=== PATIENT | male | born 1960 | race Caucasian/White ===

== ENCOUNTER 2022-03-08 09:33 | Inpatient (IN) ==
[2022-03-08] MEDS ORDERED: CEFEPIME 1,000 MG in SODIUM CHLORIDE 0.9% 100 ML IV STA (10:08)
[2022-03-08] MEDS ORDERED: SODIUM CHLORIDE 0.9% 1,000 ML IV STA (10:08)
[2022-03-08 10:36] LABS: Basophils % 0.2 % (0.0-0.8); Hematocrit 29.4 VOL% (42.0-52.0); Hemoglobin 9.7 GM/DL (14.0-18.0); Immature Granulocytes % 0.7 %; Immature Granulocytes Absolute 0.04 #; Lymphocytes # 0.4 10*3/uL (1.4-4.0); Lymphocytes % 6.4 % (21.2-54.2); Mean Corpuscular Volume 92.7 FL (87-102); Mean Platelet Volume 11.4 FL (9.6-12.0); Monocytes # 0.3 10*3/uL (0.11-0.8); Monocytes % 4.2 % (1.7-12.7); Neutrophils % 88.5 % (38.7-73.9); Red Blood Count 3.17 MC/CUMM (3.8-5.5); Red Cell Distribution Width 22.9 % (9.3-17.3)
[2022-03-08 10:40] LABS: Platelet Count 62 T/CUMM (130-400)
[2022-03-08 10:59] LABS: Albumin 1.9 G/DL (3.4-5.0); Bilirubin,Total 1.5 MG/DL (0.20-1.00); Calcium 8.6 MG/DL (8.5-10.1); Osmolality,Calculated 265.7 MOS/KG (273-304); Potassium 3.9 MMOL/L (3.5-5.1); Total Protein 6.1 G/DL (6.4-8.2)
[2022-03-08] MEDS ORDERED: SODIUM CHLORIDE 0.9% 2,300 ML IV ONE (11:09)
[2022-03-08 11:23] LABS: Band Neutrophils 7 % (0-10); Lymphocytes 2 % (20-55); Total Cells Counted 100
[2022-03-08 11:25] LABS: Platelet Estimate Decreased
[2022-03-08] MEDS ORDERED: LEVOFLOXACIN INJ 750 MG/150 ML PREMIX IV SCH (11:30)
[2022-03-08] MEDS ORDERED: ONDANSETRON 4 MG/2 ML VIAL IV PRN (11:40)
[2022-03-08] MEDS ORDERED: ACETAMINOPHEN 325 MG TABLET PO ONE (11:50)
[2022-03-08 12:21] LABS: INR 1.4; PT Patient Result 15.1 SECS (10.1-12.1)
[2022-03-08 12:35] LABS: Arterial Base Excess iSTAT 3 MMOL/L (-2.5-2.5); Arterial Bicarbonate iSTAT 28.2 MMOL/L (20-26); Arterial O2 Saturation iSTAT 49 % (95-100); Arterial PCO2 iSTAT 44 MM HG (35-48); Arterial PO2 iSTAT 26 MM HG (80-95); Arterial Total CO2 iSTAT 30 MMO/L (23-27); Arterial pH iSTAT 7.411 (7.35-7.45)
[2022-03-08] MEDS: ALBUTEROL/IPRATROPIUM 3 ML NEB RESP TX SCH (12:50)
[2022-03-08] MEDS: SODIUM CHLORIDE 0.9% 1,000 ML IV SCH ×2 (13:44→23:39)
[2022-03-08] MEDS: AZITHROMYCIN INJ 500 MG in SODIUM CHLORIDE 0.9% 250 ML IV SCH (13:44)
[2022-03-08] MEDS: MEROPENEM 500 MG in SODIUM CHLORIDE 0.9% 100 ML IV SCH ×2 (16:40→22:10)
[2022-03-08] MEDS: PANTOPRAZOLE 40 MG TABLET PO SCH (22:09)
[2022-03-09] MEDS: ALBUTEROL/IPRATROPIUM 3 ML NEB RESP TX SCH ×3 (01:01→19:24)
[2022-03-09] MEDS: MEROPENEM 500 MG in SODIUM CHLORIDE 0.9% 100 ML IV SCH ×4 (03:20→21:00)
[2022-03-09 04:09] LABS: Bilirubin,Urine Negative (Negative); Blood, Urine Negative (Negative); Glucose,Urine (UA) Negative (Negative); Ketones,Urine 5 mg/dL (Negative); Mucus,Urine Occasional /LPF (Occasional); Nitrite,Urine Negative (Negative); Protein,Urine 100 mg/dL (Negative); RBC,Urine 2 /HPF (0-4); Urine Appearance CLEAR (Clear); Urine Color Amber (Yellow); Urine Specific Gravity 1.053 (1.001-1.035)
[2022-03-09 06:08] LABS: Hematocrit 24.1 VOL% (42.0-52.0); Hemoglobin 7.9 GM/DL (14.0-18.0); Immature Granulocytes % 1.3 %; Immature Granulocytes Absolute 0.06 #; Lymphocytes # 0.2 10*3/uL (1.4-4.0); Lymphocytes % 4.8 % (21.2-54.2); Mean Corpuscular HGB Conc 32.8 GM/DL (32-36); Mean Platelet Volume 11.4 FL (9.6-12.0); Monocytes # 0.2 10*3/uL (0.11-0.8); Monocytes % 5.2 % (1.7-12.7); Neutrophils % 88.7 % (38.7-73.9); Platelet Count 57 T/CUMM (130-400); Red Blood Count 2.62 MC/CUMM (3.8-5.5); Red Cell Distribution Width 22.7 % (9.3-17.3); White Blood Count 4.6 T/CUMM (4-12)
[2022-03-09 06:33] LABS: Band Neutrophils 1 % (0-10); Hypochromia Slight; Lymphocytes 5 % (20-55); Target Cells Slight; Total Cells Counted 100
[2022-03-09 06:34] LABS: Acanthocytes Few; Albumin 1.4 G/DL (3.4-5.0); Anisocytosis 1+; Bilirubin,Total 1.3 MG/DL (0.20-1.00); Calcium 8.4 MG/DL (8.5-10.1); Microcytosis 1+; Polychromasia Slight; Potassium 3.5 MMOL/L (3.5-5.1); Total Protein 5.1 G/DL (6.4-8.2)
[2022-03-09 06:35] LABS: Platelet Estimate Decreased
[2022-03-09] MEDS ORDERED: DIGOXIN 0.5 MG/2 ML AMP IV ONE ×2 (08:10→13:04)
[2022-03-09] MEDS ORDERED: AMIODARONE INJ 150 MG in DEXTROSE 5% 100 ML IV ONE (08:26)
[2022-03-09] MEDS ORDERED: POTASSIUM CHLORIDE 20 MEQ TABLET PO ONE (08:28)
[2022-03-09] MEDS ORDERED: HEPARIN DRIP 25,000 UNITS/500 ML PREMIX IV SCH (08:30)
[2022-03-09] MEDS ORDERED: AMIODARONE INJ 450 MG in DEXTROSE 5% 241 ML IV SCH (08:30)
[2022-03-09] MEDS ORDERED: DILTIAZEM INJ 100 MG in SODIUM CHLORIDE 0.9% 100 ML IV SCH (08:30)
[2022-03-09] MEDS ORDERED: AMIODARONE 150 MG/3 ML VIAL ONE (08:36)
[2022-03-09] MEDS ORDERED: ADENOSINE 6 MG/2 ML VIAL ONE ×2 (08:37→08:45)
[2022-03-09] MEDS ORDERED: ADENOSINE 6 MG/2 ML VIAL IV ONE ×2 (08:41→08:50)
[2022-03-09] MEDS ORDERED: MAGNESIUM SULF RIDER 2 GM/50 ML PREMIX IV ONE (08:42)
[2022-03-09] MEDS ORDERED: MIDAZOLAM 2 MG/2 ML VIAL ONE ×3 (08:56→16:57)
[2022-03-09] MEDS ORDERED: PANTOPRAZOLE 40 MG TABLET PO SCH (09:00)
[2022-03-09] MEDS ORDERED: METOPROLOL TARTRATE 5 MG/5 ML VIAL IV ONE ×4 (09:00→09:17)
[2022-03-09] MEDS ORDERED: DILTIAZEM 25 MG/5 ML VIAL IV ONE ×2 (09:32→09:40)
[2022-03-09] MEDS: SODIUM CHLORIDE 0.9% 1,000 ML IV SCH ×3 (09:33→23:18)
[2022-03-09] MEDS ORDERED: VANCOMYCIN INJ 1,750 MG in SODIUM CHLORIDE 0.9% 500 ML IV ONE (10:00)
[2022-03-09] MEDS: MULTIVITAMIN (CENTRUM) TABLET PO SCH (10:43)
[2022-03-09] MEDS: ENOXAPARIN 80 MG/0.8 ML SYRINGE SUBCUT SCH ×2 (10:43→21:00)
[2022-03-09] MEDS: ASCORBIC ACID 500 MG TABLET PO SCH ×2 (10:43→21:00)
[2022-03-09] MEDS: PANTOPRAZOLE 40 MG TABLET PO SCH ×2 (10:44→21:00)
[2022-03-09] MEDS: METOPROLOL TARTRATE 5 MG/5 ML VIAL IV SCH ×3 (11:44→12:11)
[2022-03-09] MEDS: LEVALBUTEROL 1.25 MG/3 ML NEB RESP TX SCH ×2 (13:31→20:03)
[2022-03-09] MEDS: AZITHROMYCIN INJ 500 MG in SODIUM CHLORIDE 0.9% 250 ML IV SCH (14:25)
[2022-03-09] MEDS: MENTHOL/ZINC OXIDE OINT 71 GM JAR TOP SCH ×2 (16:30→21:02)
[2022-03-09] MEDS ORDERED: MEPERIDINE 50 MG/1 ML VIAL IV ONE (16:57)
[2022-03-09] MEDS ORDERED: MIDAZOLAM 2 MG/2 ML VIAL IV ONE (17:07)
[2022-03-09] MEDS: AMIODARONE INJ 450 MG in DEXTROSE 5% 241 ML IV SCH (18:10)
[2022-03-09] MEDS: VANCOMYCIN INJ 1,250 MG in SODIUM CHLORIDE 0.9% 250 ML IV SCH (21:01)
[2022-03-10] MEDS: LEVALBUTEROL 1.25 MG/3 ML NEB RESP TX SCH ×5 (00:30→19:04)
[2022-03-10] MEDS: MEROPENEM 500 MG in SODIUM CHLORIDE 0.9% 100 ML IV SCH ×4 (03:00→21:50)
[2022-03-10 03:33] LABS: Basophils % 0.1 % (0.0-0.8); Eosinophils % 0.3 % (0.00-10.9); Hemoglobin 8.9 GM/DL (14.0-18.0); Immature Granulocytes Absolute 0.07 #; Lymphocytes # 0.4 10*3/uL (1.4-4.0); Lymphocytes % 6.2 % (21.2-54.2); Mean Corpuscular Volume 92.8 FL (87-102); Monocytes # 0.4 10*3/uL (0.11-0.8); Monocytes % 5.9 % (1.7-12.7); Neutrophils % 86.5 % (38.7-73.9); Platelet Count 80 T/CUMM (130-400); Red Blood Count 2.91 MC/CUMM (3.8-5.5); Red Cell Distribution Width 22.6 % (9.3-17.3)
[2022-03-10 03:43] LABS: Albumin 1.4 G/DL (3.4-5.0); Calcium 7.8 MG/DL (8.5-10.1); Osmolality,Calculated 278.8 MOS/KG (273-304); Phosphorous 1.3 MG/DL (2.5-4.9); Potassium 3.7 MMOL/L (3.5-5.1); Total Protein 4.8 G/DL (6.4-8.2)
[2022-03-10 04:20] LABS: Lymphocytes 2 % (20-55); Total Cells Counted 100
[2022-03-10 04:21] LABS: Anisocytosis 2+; Platelet Estimate Decreased; Poikilocytosis 2+
[2022-03-10] MEDS: AMIODARONE INJ 450 MG in DEXTROSE 5% 241 ML IV SCH (04:48)
[2022-03-10] MEDS: SODIUM CHLORIDE 0.9% 1,000 ML IV SCH (08:10)
[2022-03-10] MEDS ORDERED: POTASSIUM CHLORIDE 20 MEQ TABLET PO ONE (08:49)
[2022-03-10] MEDS: MENTHOL/ZINC OXIDE OINT 71 GM JAR TOP SCH ×2 (09:17→20:08)
[2022-03-10] MEDS: MULTIVITAMIN (CENTRUM) TABLET PO SCH (09:18)
[2022-03-10] MEDS: ENOXAPARIN 80 MG/0.8 ML SYRINGE SUBCUT SCH (09:19)
[2022-03-10] MEDS: PANTOPRAZOLE 40 MG TABLET PO SCH ×2 (09:19→20:07)
[2022-03-10] MEDS: ASCORBIC ACID 500 MG TABLET PO SCH ×2 (09:19→20:07)
[2022-03-10] MEDS: METOPROLOL SUCCINATE XL 25 MG TABLET PO SCH (09:23)
[2022-03-10] MEDS: VANCOMYCIN INJ 1,250 MG in SODIUM CHLORIDE 0.9% 250 ML IV SCH ×2 (09:50→22:24)
[2022-03-10] MEDS ORDERED: POTASSIUM PHOSPHATE 30 MMOL in SODIUM CHLORIDE 0.9% 250 ML IV ONE (11:33)
[2022-03-10] MEDS: AZITHROMYCIN INJ 500 MG in SODIUM CHLORIDE 0.9% 250 ML IV SCH (14:57)
[2022-03-11] MEDS: LEVALBUTEROL 1.25 MG/3 ML NEB RESP TX SCH ×4 (00:55→17:45)
[2022-03-11] MEDS: MEROPENEM 500 MG in SODIUM CHLORIDE 0.9% 100 ML IV SCH ×4 (03:16→21:09)
[2022-03-11 03:45] LABS: Basophils % 0.2 % (0.0-0.8); Eosinophils % 0.2 % (0.00-10.9); Hemoglobin 8.3 GM/DL (14.0-18.0); Immature Granulocytes % 1.7 %; Immature Granulocytes Absolute 0.11 #; Lymphocytes # 0.5 10*3/uL (1.4-4.0); Lymphocytes % 7.2 % (21.2-54.2); Mean Corpuscular HGB Conc 31.9 GM/DL (32-36); Mean Corpuscular Volume 94.2 FL (87-102); Mean Platelet Volume 10.4 FL (9.6-12.0); Monocytes # 0.6 10*3/uL (0.11-0.8); Monocytes % 9.3 % (1.7-12.7); NRBC # 0.02 10*3/uL; Neutrophils % 81.4 % (38.7-73.9); Platelet Count 98 T/CUMM (130-400); Red Blood Count 2.76 MC/CUMM (3.8-5.5); Red Cell Distribution Width 22.5 % (9.3-17.3); White Blood Count 6.4 T/CUMM (4-12)
[2022-03-11 03:54] LABS: Calcium 8.1 MG/DL (8.5-10.1); Potassium 3.6 MMOL/L (3.5-5.1)
[2022-03-11 04:15] LABS: Eosinophils 1 % (0-10); Lymphocytes 5 % (20-55); Total Cells Counted 100
[2022-03-11 04:16] LABS: Platelet Estimate Decreased
[2022-03-11] MEDS: MENTHOL/ZINC OXIDE OINT 71 GM JAR TOP SCH ×2 (09:28→20:54)
[2022-03-11] MEDS: MULTIVITAMIN (CENTRUM) TABLET PO SCH (09:28)
[2022-03-11] MEDS: ASCORBIC ACID 500 MG TABLET PO SCH ×2 (09:28→20:53)
[2022-03-11] MEDS: PANTOPRAZOLE 40 MG TABLET PO SCH ×2 (09:28→20:53)
[2022-03-11] MEDS: AMIODARONE 200 MG TABLET PO SCH (09:28)
[2022-03-11] MEDS: METOPROLOL SUCCINATE XL 25 MG TABLET PO SCH (09:28)
[2022-03-11] MEDS ORDERED: ENOXAPARIN 80 MG/0.8 ML SYRINGE SUBCUT SCH (10:00)
[2022-03-11] MEDS: VANCOMYCIN INJ 1,250 MG in SODIUM CHLORIDE 0.9% 250 ML IV SCH ×2 (11:28→21:51)
[2022-03-11] MEDS ORDERED: POTASSIUM PHOSPHATE 30 MMOL in SODIUM CHLORIDE 0.9% 250 ML IV ONE (12:00)
[2022-03-11] MEDS: AZITHROMYCIN INJ 500 MG in SODIUM CHLORIDE 0.9% 250 ML IV SCH (14:24)
[2022-03-11] MEDS ORDERED: METOPROLOL TARTRATE 5 MG/5 ML VIAL IV ONE ×2 (17:04)
[2022-03-11] MEDS ORDERED: DILTIAZEM 25 MG/5 ML VIAL IV ONE ×2 (17:09→17:30)
[2022-03-11] MEDS ORDERED: AMIODARONE 450 MG/9 ML VIAL IV ONE (17:22)
[2022-03-11 17:42] LABS: Arterial Base Excess iSTAT -2 MMOL/L (-2.5-2.5); Arterial Bicarbonate iSTAT 24.9 MMOL/L (20-26); Arterial O2 Saturation iSTAT 89 % (95-100); Arterial PCO2 iSTAT 49 MM HG (35-48); Arterial PO2 iSTAT 61 MM HG (80-95); Arterial Total CO2 iSTAT 26 MMO/L (23-27); Arterial pH iSTAT 7.317 (7.35-7.45)
[2022-03-11] MEDS ORDERED: AMIODARONE INJ 450 MG in DEXTROSE 5% 241 ML IV SCH (18:00)
[2022-03-12] MEDS: LEVALBUTEROL 1.25 MG/3 ML NEB RESP TX SCH ×4 (01:00→19:14)
[2022-03-12] MEDS: MEROPENEM 500 MG in SODIUM CHLORIDE 0.9% 100 ML IV SCH ×4 (03:08→21:48)
[2022-03-12 03:30] LABS: Basophils % 0.2 % (0.0-0.8); Eosinophils % 0.1 % (0.00-10.9); Hematocrit 28.9 VOL% (42.0-52.0); Hemoglobin 9.2 GM/DL (14.0-18.0); Immature Granulocytes % 3.8 %; Immature Granulocytes Absolute 0.43 #; Lymphocytes # 0.9 10*3/uL (1.4-4.0); Lymphocytes % 7.6 % (21.2-54.2); Mean Corpuscular HGB Conc 31.8 GM/DL (32-36); Mean Corpuscular Volume 93.8 FL (87-102); Mean Platelet Volume 10.3 FL (9.6-12.0); Monocytes # 1.2 10*3/uL (0.11-0.8); NRBC # 0.02 10*3/uL; Neutrophils % 77.3 % (38.7-73.9); Platelet Count 134 T/CUMM (130-400); Red Blood Count 3.08 MC/CUMM (3.8-5.5); Red Cell Distribution Width 23.4 % (9.3-17.3); White Blood Count 11.2 T/CUMM (4-12)
[2022-03-12 03:41] LABS: Calcium 7.9 MG/DL (8.5-10.1); Osmolality,Calculated 275.7 MOS/KG (273-304); Potassium 3.7 MMOL/L (3.5-5.1)
[2022-03-12 04:14] LABS: Lymphocytes 5 % (20-55); Total Cells Counted 100
[2022-03-12 04:15] LABS: Platelet Estimate Adequate; Polychromasia Slight
[2022-03-12 04:16] LABS: Burr Cells Slight
[2022-03-12] MEDS: MULTIVITAMIN (CENTRUM) TABLET PO SCH (08:38)
[2022-03-12] MEDS: AMIODARONE 200 MG TABLET PO SCH (08:38)
[2022-03-12] MEDS: MENTHOL/ZINC OXIDE OINT 71 GM JAR TOP SCH ×2 (08:38→20:24)
[2022-03-12] MEDS: PANTOPRAZOLE 40 MG TABLET PO SCH ×2 (08:38→20:23)
[2022-03-12] MEDS: METOPROLOL SUCCINATE XL 25 MG TABLET PO SCH (08:38)
[2022-03-12] MEDS: ASCORBIC ACID 500 MG TABLET PO SCH ×2 (08:38→20:23)
[2022-03-12] MEDS ORDERED: FUROSEMIDE 40 MG/4 ML VIAL IV ONE (11:12)
[2022-03-12] MEDS: VANCOMYCIN INJ 1,250 MG in SODIUM CHLORIDE 0.9% 250 ML IV SCH (11:44)
[2022-03-12] MEDS: AZITHROMYCIN INJ 500 MG in SODIUM CHLORIDE 0.9% 250 ML IV SCH (12:20)
[2022-03-12] MEDS ORDERED: METOPROLOL TARTRATE 5 MG/5 ML VIAL IV ONE ×3 (19:35→22:00)
[2022-03-12] MEDS: AMIODARONE INJ 450 MG in DEXTROSE 5% 241 ML IV SCH (20:21)
[2022-03-13] MEDS: LEVALBUTEROL 1.25 MG/3 ML NEB RESP TX SCH ×4 (00:32→19:57)
[2022-03-13] MEDS: MEROPENEM 500 MG in SODIUM CHLORIDE 0.9% 100 ML IV SCH ×4 (03:11→22:55)
[2022-03-13 03:39] LABS: Basophils % 0.2 % (0.0-0.8); Eosinophils % 0.1 % (0.00-10.9); Hematocrit 30.6 VOL% (42.0-52.0); Hemoglobin 9.7 GM/DL (14.0-18.0); Immature Granulocytes % 5.1 %; Immature Granulocytes Absolute 0.85 #; Lymphocytes % 5.8 % (21.2-54.2); Mean Corpuscular HGB Conc 31.7 GM/DL (32-36); Mean Corpuscular Volume 94.4 FL (87-102); Mean Platelet Volume 10.2 FL (9.6-12.0); Monocytes # 1.3 10*3/uL (0.11-0.8); Monocytes % 7.7 % (1.7-12.7); NRBC # 0.02 10*3/uL; Neutrophils % 81.1 % (38.7-73.9); Platelet Count 181 T/CUMM (130-400); Red Blood Count 3.24 MC/CUMM (3.8-5.5); White Blood Count 16.5 T/CUMM (4-12)
[2022-03-13 03:49] LABS: INR 1.2; PT Patient Result 13.1 SECS (10.1-12.1)
[2022-03-13 03:59] LABS: Arterial Base Excess iSTAT 6 MMOL/L (-2.5-2.5); Arterial Bicarbonate iSTAT 29.9 MMOL/L (20-26); Arterial O2 Saturation iSTAT 93 % (95-100); Arterial PCO2 iSTAT 41 MM HG (35-48); Arterial PO2 iSTAT 64 MM HG (80-95); Arterial Total CO2 iSTAT 31 MMO/L (23-27); Arterial pH iSTAT 7.472 (7.35-7.45)
[2022-03-13 04:04] LABS: Lymphocytes 5 % (20-55); Platelet Estimate Adequate; Total Cells Counted 100
[2022-03-13 04:06] LABS: Polychromasia Few
[2022-03-13 04:09] LABS: Anisocytosis Slight
[2022-03-13 04:23] LABS: Albumin 1.6 G/DL (3.4-5.0); Bilirubin,Total 0.9 MG/DL (0.20-1.00); Calcium 7.9 MG/DL (8.5-10.1); Osmolality,Calculated 276.5 MOS/KG (273-304); Phosphorous 2.3 MG/DL (2.5-4.9); Potassium 3.2 MMOL/L (3.5-5.1); Total Protein 5.3 G/DL (6.4-8.2)
[2022-03-13] MEDS: PANTOPRAZOLE 40 MG TABLET PO SCH ×2 (08:29→20:15)
[2022-03-13] MEDS: ASCORBIC ACID 500 MG TABLET PO SCH ×2 (08:29→20:15)
[2022-03-13] MEDS: MENTHOL/ZINC OXIDE OINT 71 GM JAR TOP SCH ×2 (08:29→20:16)
[2022-03-13] MEDS: METOPROLOL SUCCINATE XL 25 MG TABLET PO SCH (08:29)
[2022-03-13] MEDS: MULTIVITAMIN (CENTRUM) TABLET PO SCH (08:29)
[2022-03-13] MEDS: AMIODARONE 200 MG TABLET PO SCH ×2 (08:29→20:15)
[2022-03-13] MEDS ORDERED: POTASSIUM PHOSPHATE 30 MMOL in SODIUM CHLORIDE 0.9% 250 ML IV ONE (08:50)
[2022-03-13] MEDS: AMIODARONE INJ 450 MG in DEXTROSE 5% 241 ML IV SCH (11:22)
[2022-03-13] MEDS: AZITHROMYCIN INJ 500 MG in SODIUM CHLORIDE 0.9% 250 ML IV SCH (11:22)
[2022-03-13] MEDS ORDERED: DIGOXIN 0.5 MG/2 ML AMP IV ONE ×2 (14:45→21:00)
[2022-03-13] MEDS ORDERED: DIGOXIN 0.5 MG/2 ML AMP ONE (14:47)
[2022-03-13] MEDS: ENOXAPARIN 80 MG/0.8 ML SYRINGE SUBCUT SCH (15:07)
[2022-03-14] MEDS: LEVALBUTEROL 1.25 MG/3 ML NEB RESP TX SCH ×4 (00:06→19:52)
[2022-03-14] MEDS: AMIODARONE INJ 450 MG in DEXTROSE 5% 241 ML IV SCH (02:44)
[2022-03-14] MEDS: MEROPENEM 500 MG in SODIUM CHLORIDE 0.9% 100 ML IV SCH ×4 (03:23→21:23)
[2022-03-14 03:53] LABS: Basophils % 0.2 % (0.0-0.8); Eosinophils # 0.1 10*3/uL (0.0-0.87); Eosinophils % 0.4 % (0.00-10.9); Hematocrit 30.5 VOL% (42.0-52.0); Hemoglobin 9.7 GM/DL (14.0-18.0); Immature Granulocytes % 5.3 %; Immature Granulocytes Absolute 0.87 #; Lymphocytes # 0.8 10*3/uL (1.4-4.0); Mean Corpuscular HGB Conc 31.8 GM/DL (32-36); Mean Corpuscular Volume 92.4 FL (87-102); Mean Platelet Volume 10.3 FL (9.6-12.0); Monocytes # 1.3 10*3/uL (0.11-0.8); Monocytes % 7.8 % (1.7-12.7); NRBC # 0.02 10*3/uL; Neutrophils % 81.3 % (38.7-73.9); Platelet Count 219 T/CUMM (130-400); Red Cell Distribution Width 22.1 % (9.3-17.3); White Blood Count 16.3 T/CUMM (4-12)
[2022-03-14 04:17] LABS: Albumin 1.6 G/DL (3.4-5.0); Band Neutrophils 1 % (0-10); Bilirubin,Total 0.7 MG/DL (0.20-1.00); Hypochromia Slight; Lymphocytes 1 % (20-55); Osmolality,Calculated 274.8 MOS/KG (273-304); Platelet Estimate Adequate; Total Cells Counted 100; Total Protein 5.2 G/DL (6.4-8.2)
[2022-03-14] MEDS: METOPROLOL SUCCINATE XL 25 MG TABLET PO SCH (09:12)
[2022-03-14] MEDS: AMIODARONE 200 MG TABLET PO SCH ×2 (09:12→21:23)
[2022-03-14] MEDS: MULTIVITAMIN (CENTRUM) TABLET PO SCH (09:12)
[2022-03-14] MEDS: ASCORBIC ACID 500 MG TABLET PO SCH ×2 (09:12→21:23)
[2022-03-14] MEDS: PANTOPRAZOLE 40 MG TABLET PO SCH ×2 (09:12→21:23)
[2022-03-14] MEDS: MENTHOL/ZINC OXIDE OINT 71 GM JAR TOP SCH ×2 (09:13→21:26)
[2022-03-14] MEDS: AZITHROMYCIN INJ 500 MG in SODIUM CHLORIDE 0.9% 250 ML IV SCH (12:40)
[2022-03-14] MEDS: ENOXAPARIN 80 MG/0.8 ML SYRINGE SUBCUT SCH (15:31)
[2022-03-15] MEDS: LEVALBUTEROL 1.25 MG/3 ML NEB RESP TX SCH ×4 (01:12→17:47)
[2022-03-15] MEDS: MEROPENEM 500 MG in SODIUM CHLORIDE 0.9% 100 ML IV SCH ×4 (04:44→21:13)
[2022-03-15 05:41] LABS: Basophils % 0.2 % (0.0-0.8); Eosinophils # 0.1 10*3/uL (0.0-0.87); Eosinophils % 0.3 % (0.00-10.9); Hematocrit 30.7 VOL% (42.0-52.0); Hemoglobin 9.7 GM/DL (14.0-18.0); Immature Granulocytes % 4.4 %; Lymphocytes % 5.2 % (21.2-54.2); Mean Corpuscular HGB Conc 31.6 GM/DL (32-36); Mean Corpuscular Volume 93.9 FL (87-102); Monocytes # 1.1 10*3/uL (0.11-0.8); Monocytes % 6.3 % (1.7-12.7); NRBC # 0.02 10*3/uL; Neutrophils % 83.6 % (38.7-73.9); Platelet Count 270 T/CUMM (130-400); Red Blood Count 3.27 MC/CUMM (3.8-5.5); White Blood Count 18.2 T/CUMM (4-12)
[2022-03-15 06:00] LABS: Calcium 8.1 MG/DL (8.5-10.1); Osmolality,Calculated 273.8 MOS/KG (273-304); Phosphorous 2.4 MG/DL (2.5-4.9)
[2022-03-15 06:11] LABS: Lymphocytes 2 % (20-55); Total Cells Counted 100
[2022-03-15 06:12] LABS: Hypochromia Slight; Platelet Estimate Adequate
[2022-03-15] MEDS: ASCORBIC ACID 500 MG TABLET PO SCH ×2 (09:14→21:14)
[2022-03-15] MEDS: AMIODARONE 200 MG TABLET PO SCH ×2 (09:14→21:14)
[2022-03-15] MEDS: MULTIVITAMIN (CENTRUM) TABLET PO SCH (09:14)
[2022-03-15] MEDS: APIXABAN 5 MG TABLET PO SCH ×2 (09:14→21:14)
[2022-03-15] MEDS: MENTHOL/ZINC OXIDE OINT 71 GM JAR TOP SCH ×2 (09:15→21:15)
[2022-03-15] MEDS: METOPROLOL SUCCINATE XL 25 MG TABLET PO SCH ×2 (09:15→21:14)
[2022-03-15] MEDS: PANTOPRAZOLE 40 MG TABLET PO SCH ×2 (09:15→21:14)
[2022-03-15] MEDS ORDERED: METOPROLOL TARTRATE 5 MG/5 ML VIAL IV ONE (13:10)
[2022-03-16] MEDS: LEVALBUTEROL 1.25 MG/3 ML NEB RESP TX SCH ×4 (00:04→19:07)
[2022-03-16] MEDS: MEROPENEM 500 MG in SODIUM CHLORIDE 0.9% 100 ML IV SCH ×4 (04:20→21:05)
[2022-03-16 05:29] LABS: Basophils # 0.1 10*3/uL (0.0-0.2); Basophils % 0.2 % (0.0-0.8); Eosinophils % 0.1 % (0.00-10.9); Hemoglobin 9.7 GM/DL (14.0-18.0); Immature Granulocytes % 3.1 %; Immature Granulocytes Absolute 0.68 #; Lymphocytes # 1.1 10*3/uL (1.4-4.0); Mean Corpuscular HGB Conc 32.3 GM/DL (32-36); Mean Corpuscular Volume 92.9 FL (87-102); Mean Platelet Volume 10.4 FL (9.6-12.0); Monocytes % 4.5 % (1.7-12.7); Neutrophils % 87.1 % (38.7-73.9); Platelet Count 274 T/CUMM (130-400); Red Blood Count 3.23 MC/CUMM (3.8-5.5); Red Cell Distribution Width 21.3 % (9.3-17.3); White Blood Count 21.6 T/CUMM (4-12)
[2022-03-16 05:41] LABS: Calcium 8.1 MG/DL (8.5-10.1); Osmolality,Calculated 269.1 MOS/KG (273-304); Phosphorous 2.4 MG/DL (2.5-4.9); Potassium 3.7 MMOL/L (3.5-5.1)
[2022-03-16 05:49] LABS: Band Neutrophils 1 % (0-10); Lymphocytes 1 % (20-55); Nucleated Red Blood Cells 1 /100 WBC (0-5); Total Cells Counted 100
[2022-03-16 05:50] LABS: Hypochromia Slight; Microcytosis 1+; Ovalocytes Slight; Target Cells Slight
[2022-03-16 05:51] LABS: Platelet Estimate Normal; Polychromasia Slight
[2022-03-16] MEDS: ASCORBIC ACID 500 MG TABLET PO SCH ×2 (09:39→21:05)
[2022-03-16] MEDS: PANTOPRAZOLE 40 MG TABLET PO SCH ×2 (09:40→21:05)
[2022-03-16] MEDS: METOPROLOL SUCCINATE XL 25 MG TABLET PO SCH ×2 (09:41→21:05)
[2022-03-16] MEDS: AMIODARONE 200 MG TABLET PO SCH ×2 (09:41→21:05)
[2022-03-16] MEDS: APIXABAN 5 MG TABLET PO SCH ×2 (09:41→21:05)
[2022-03-16] MEDS: MULTIVITAMIN (CENTRUM) TABLET PO SCH (09:42)
[2022-03-16] MEDS: MENTHOL/ZINC OXIDE OINT 71 GM JAR TOP SCH ×2 (09:43→21:04)
[2022-03-16 10:06] LABS: Arterial Base Excess iSTAT 6 MMOL/L (-2.5-2.5); Arterial Bicarbonate iSTAT 30.3 MMOL/L (20-26); Arterial O2 Saturation iSTAT 94 % (95-100); Arterial PCO2 iSTAT 42 MM HG (35-48); Arterial PO2 iSTAT 66 MM HG (80-95); Arterial Total CO2 iSTAT 32 MMO/L (23-27); Arterial pH iSTAT 7.468 (7.35-7.45)
[2022-03-17] MEDS: LEVALBUTEROL 1.25 MG/3 ML NEB RESP TX SCH ×4 (00:10→19:07)
[2022-03-17] MEDS: MEROPENEM 500 MG in SODIUM CHLORIDE 0.9% 100 ML IV SCH ×4 (04:22→21:02)
[2022-03-17 06:10] LABS: Basophils % 0.2 % (0.0-0.8); Eosinophils % 0.2 % (0.00-10.9); Hematocrit 31.9 VOL% (42.0-52.0); Hemoglobin 10.1 GM/DL (14.0-18.0); Immature Granulocytes % 2.9 %; Immature Granulocytes Absolute 0.47 #; Lymphocytes # 0.9 10*3/uL (1.4-4.0); Lymphocytes % 5.5 % (21.2-54.2); Mean Corpuscular HGB Conc 31.7 GM/DL (32-36); Mean Corpuscular Volume 93.5 FL (87-102); Monocytes # 0.9 10*3/uL (0.11-0.8); Monocytes % 5.7 % (1.7-12.7); Neutrophils % 85.5 % (38.7-73.9); Platelet Count 279 T/CUMM (130-400); Red Blood Count 3.41 MC/CUMM (3.8-5.5); White Blood Count 16.3 T/CUMM (4-12)
[2022-03-17 06:25] LABS: Calcium 8.1 MG/DL (8.5-10.1); Osmolality,Calculated 271.1 MOS/KG (273-304)
[2022-03-17] MEDS: PANTOPRAZOLE 40 MG TABLET PO SCH ×2 (09:08→21:02)
[2022-03-17] MEDS: METOPROLOL SUCCINATE XL 25 MG TABLET PO SCH ×2 (09:08→21:02)
[2022-03-17] MEDS: MULTIVITAMIN (CENTRUM) TABLET PO SCH (09:08)
[2022-03-17] MEDS: ASCORBIC ACID 500 MG TABLET PO SCH ×2 (09:09→21:02)
[2022-03-17] MEDS: AMIODARONE 200 MG TABLET PO SCH ×2 (09:09→21:02)
[2022-03-17] MEDS: APIXABAN 5 MG TABLET PO SCH ×2 (09:09→21:02)
[2022-03-17] MEDS: MENTHOL/ZINC OXIDE OINT 71 GM JAR TOP SCH ×2 (09:22→21:12)
[2022-03-17] MEDS ORDERED: HEPARIN LOCK FLUSH 500 UNIT/5 ML SYRINGE IV ONE (09:22)
[2022-03-18] MEDS: MEROPENEM 500 MG in SODIUM CHLORIDE 0.9% 100 ML IV SCH ×4 (04:13→22:05)
[2022-03-18 05:28] LABS: Basophils % 0.2 % (0.0-0.8); Eosinophils % 0.2 % (0.00-10.9); Hemoglobin 9.3 GM/DL (14.0-18.0); Immature Granulocytes % 2.2 %; Immature Granulocytes Absolute 0.35 #; Lymphocytes # 0.8 10*3/uL (1.4-4.0); Mean Corpuscular HGB Conc 32.1 GM/DL (32-36); Mean Corpuscular Volume 92.9 FL (87-102); Mean Platelet Volume 10.3 FL (9.6-12.0); Monocytes # 0.9 10*3/uL (0.11-0.8); Monocytes % 5.7 % (1.7-12.7); Neutrophils % 86.7 % (38.7-73.9); Platelet Count 259 T/CUMM (130-400); Red Blood Count 3.12 MC/CUMM (3.8-5.5); Red Cell Distribution Width 20.3 % (9.3-17.3); White Blood Count 15.7 T/CUMM (4-12)
[2022-03-18 05:30] LABS: Calcium 7.8 MG/DL (8.5-10.1); Osmolality,Calculated 268.2 MOS/KG (273-304)
[2022-03-18] MEDS: LEVALBUTEROL 1.25 MG/3 ML NEB RESP TX SCH ×5 (07:25→19:14)
[2022-03-18] MEDS: MULTIVITAMIN (CENTRUM) TABLET PO SCH (09:40)
[2022-03-18] MEDS: ASCORBIC ACID 500 MG TABLET PO SCH ×2 (09:40→22:04)
[2022-03-18] MEDS: PANTOPRAZOLE 40 MG TABLET PO SCH ×2 (09:40→22:05)
[2022-03-18] MEDS: AMIODARONE 200 MG TABLET PO SCH ×2 (09:41→22:04)
[2022-03-18] MEDS: METOPROLOL SUCCINATE XL 25 MG TABLET PO SCH ×2 (09:41→22:05)
[2022-03-18] MEDS: APIXABAN 5 MG TABLET PO SCH ×2 (09:41→22:04)
[2022-03-18] MEDS: MENTHOL/ZINC OXIDE OINT 71 GM JAR TOP SCH ×2 (10:00→22:50)
[2022-03-19] MEDS: LEVALBUTEROL 1.25 MG/3 ML NEB RESP TX SCH ×4 (00:07→19:00)
[2022-03-19] MEDS: ACETAMINOPHEN 325 MG TABLET PO PRN ×2 (01:24→21:18)
[2022-03-19] MEDS: MEROPENEM 500 MG in SODIUM CHLORIDE 0.9% 100 ML IV SCH ×4 (04:01→21:19)
[2022-03-19 05:07] LABS: Basophils % 0.2 % (0.0-0.8); Eosinophils % 0.1 % (0.00-10.9); Hematocrit 27.9 VOL% (42.0-52.0); Hemoglobin 8.9 GM/DL (14.0-18.0); Immature Granulocytes % 1.2 %; Immature Granulocytes Absolute 0.18 #; Lymphocytes # 0.9 10*3/uL (1.4-4.0); Mean Corpuscular HGB Conc 31.9 GM/DL (32-36); Mean Corpuscular Volume 93.3 FL (87-102); Mean Platelet Volume 10.6 FL (9.6-12.0); Monocytes % 6.5 % (1.7-12.7); Platelet Count 238 T/CUMM (130-400); Red Blood Count 2.99 MC/CUMM (3.8-5.5); Red Cell Distribution Width 19.9 % (9.3-17.3); White Blood Count 14.9 T/CUMM (4-12)
[2022-03-19 05:20] LABS: Calcium 7.5 MG/DL (8.5-10.1); Osmolality,Calculated 266.2 MOS/KG (273-304); Potassium 3.9 MMOL/L (3.5-5.1)
[2022-03-19] MEDS: APIXABAN 5 MG TABLET PO SCH ×2 (08:39→21:18)
[2022-03-19] MEDS: METOPROLOL SUCCINATE XL 25 MG TABLET PO SCH ×2 (08:39→21:17)
[2022-03-19] MEDS: PANTOPRAZOLE 40 MG TABLET PO SCH ×2 (08:39→21:18)
[2022-03-19] MEDS: ASCORBIC ACID 500 MG TABLET PO SCH ×2 (08:40→21:17)
[2022-03-19] MEDS: AMIODARONE 200 MG TABLET PO SCH ×2 (08:40→21:18)
[2022-03-19] MEDS: MULTIVITAMIN (CENTRUM) TABLET PO SCH (08:40)
[2022-03-19] MEDS: FUROSEMIDE 40 MG/4 ML VIAL IV SCH (14:29)
[2022-03-19] MEDS: MENTHOL/ZINC OXIDE OINT 71 GM JAR TOP SCH ×2 (15:28→21:18)
[2022-03-20 01:37] LABS: Arterial Base Excess iSTAT 11 MMOL/L (-2.5-2.5); Arterial Bicarbonate iSTAT 36.1 MMOL/L (20-26); Arterial O2 Saturation iSTAT 99 % (95-100); Arterial PCO2 iSTAT 48 MM HG (35-48); Arterial PO2 iSTAT 137 MM HG (80-95); Arterial Total CO2 iSTAT 38 MMO/L (23-27); Arterial pH iSTAT 7.482 (7.35-7.45)
[2022-03-20] MEDS: MEROPENEM 500 MG in SODIUM CHLORIDE 0.9% 100 ML IV SCH ×4 (04:53→22:16)
[2022-03-20 06:09] LABS: Basophils # 0.1 10*3/uL (0.0-0.2); Basophils % 0.3 % (0.0-0.8); Eosinophils % 0.2 % (0.00-10.9); Hematocrit 28.2 VOL% (42.0-52.0); Hemoglobin 9.1 GM/DL (14.0-18.0); Immature Granulocytes % 1.2 %; Immature Granulocytes Absolute 0.22 #; Lymphocytes # 0.8 10*3/uL (1.4-4.0); Lymphocytes % 4.3 % (21.2-54.2); Mean Corpuscular HGB Conc 32.3 GM/DL (32-36); Mean Corpuscular Volume 92.5 FL (87-102); Mean Platelet Volume 10.4 FL (9.6-12.0); Monocytes % 5.4 % (1.7-12.7); Neutrophils % 88.6 % (38.7-73.9); Platelet Count 242 T/CUMM (130-400); Red Blood Count 3.05 MC/CUMM (3.8-5.5); Red Cell Distribution Width 19.3 % (9.3-17.3); White Blood Count 17.9 T/CUMM (4-12)
[2022-03-20 06:46] LABS: Band Neutrophils 2 % (0-10); Hypochromia Slight; Lymphocytes 2 % (20-55); Microcytosis 1+; Ovalocytes Slight; Platelet Estimate Normal; Total Cells Counted 100
[2022-03-20 06:52] LABS: Calcium 7.8 MG/DL (8.5-10.1); Osmolality,Calculated 265.4 MOS/KG (273-304); Potassium 3.8 MMOL/L (3.5-5.1)
[2022-03-20] MEDS: LEVALBUTEROL 1.25 MG/3 ML NEB RESP TX SCH ×4 (07:10→19:27)
[2022-03-20] MEDS: METOPROLOL SUCCINATE XL 25 MG TABLET PO SCH ×2 (09:13→22:16)
[2022-03-20] MEDS: FUROSEMIDE 40 MG/4 ML VIAL IV SCH ×2 (09:13→18:11)
[2022-03-20] MEDS: MENTHOL/ZINC OXIDE OINT 71 GM JAR TOP SCH ×2 (09:14→22:18)
[2022-03-20] MEDS: APIXABAN 5 MG TABLET PO SCH ×2 (09:14→22:16)
[2022-03-20] MEDS: ASCORBIC ACID 500 MG TABLET PO SCH ×2 (09:14→22:15)
[2022-03-20] MEDS: PANTOPRAZOLE 40 MG TABLET PO SCH ×2 (09:14→22:16)
[2022-03-20] MEDS: MULTIVITAMIN (CENTRUM) TABLET PO SCH (09:14)
[2022-03-20] MEDS: AMIODARONE 200 MG TABLET PO SCH ×2 (09:14→22:16)
[2022-03-20] MEDS ORDERED: VANCOMYCIN INJ 1,000 MG in SODIUM CHLORIDE 0.9% 250 ML IV SCH (11:00)
[2022-03-20] MEDS: VANCOMYCIN INJ 1,250 MG in SODIUM CHLORIDE 0.9% 250 ML IV SCH ×2 (13:18→23:03)
[2022-03-20] MEDS: methylPREDNISolone SOD SUC 40 MG/1 ML VIAL IV SCH ×2 (18:12→23:00)
[2022-03-21] MEDS: LEVALBUTEROL 1.25 MG/3 ML NEB RESP TX SCH ×4 (00:32→19:00)
[2022-03-21] MEDS ORDERED: SODIUM CHLORIDE 0.9% 500 ML IV ONE ×2 (02:00→21:36)
[2022-03-21] MEDS: MEROPENEM 500 MG in SODIUM CHLORIDE 0.9% 100 ML IV SCH ×4 (05:05→22:42)
[2022-03-21 06:34] LABS: Calcium 8.3 MG/DL (8.5-10.1); Osmolality,Calculated 266.5 MOS/KG (273-304); Potassium 3.9 MMOL/L (3.5-5.1)
[2022-03-21] MEDS: APIXABAN 5 MG TABLET PO SCH ×2 (09:47→22:42)
[2022-03-21] MEDS: MENTHOL/ZINC OXIDE OINT 71 GM JAR TOP SCH ×2 (09:47→22:43)
[2022-03-21] MEDS: MULTIVITAMIN (CENTRUM) TABLET PO SCH (09:47)
[2022-03-21] MEDS: AMIODARONE 200 MG TABLET PO SCH ×2 (09:47→22:42)
[2022-03-21] MEDS: ASCORBIC ACID 500 MG TABLET PO SCH ×2 (09:48→22:41)
[2022-03-21] MEDS: METOPROLOL SUCCINATE XL 25 MG TABLET PO SCH ×2 (09:48→22:15)
[2022-03-21] MEDS: PANTOPRAZOLE 40 MG TABLET PO SCH ×2 (09:48→22:42)
[2022-03-21] MEDS: methylPREDNISolone SOD SUC 40 MG/1 ML VIAL IV SCH ×2 (09:51→16:54)
[2022-03-21] MEDS: FUROSEMIDE 40 MG/4 ML VIAL IV SCH ×2 (09:55→16:48)
[2022-03-21] MEDS: VANCOMYCIN INJ 1,250 MG in SODIUM CHLORIDE 0.9% 250 ML IV SCH (12:04)
[2022-03-22] MEDS: VANCOMYCIN INJ 1,250 MG in SODIUM CHLORIDE 0.9% 250 ML IV SCH ×2 (00:24→12:58)
[2022-03-22] MEDS: methylPREDNISolone SOD SUC 40 MG/1 ML VIAL IV SCH ×3 (00:24→18:41)
[2022-03-22] MEDS ORDERED: METOPROLOL TARTRATE 5 MG/5 ML VIAL IV ONE (00:33)
[2022-03-22] MEDS: LEVALBUTEROL 1.25 MG/3 ML NEB RESP TX SCH ×4 (00:35→20:15)
[2022-03-22] MEDS: METOPROLOL TARTRATE 25 MG TABLET PO SCH ×3 (00:57→22:11)
[2022-03-22] MEDS: MEROPENEM 500 MG in SODIUM CHLORIDE 0.9% 100 ML IV SCH ×4 (04:07→22:11)
[2022-03-22 06:21] LABS: Basophils % 0.1 % (0.0-0.8); Hematocrit 36.4 VOL% (42.0-52.0); Hemoglobin 11.4 GM/DL (14.0-18.0); Immature Granulocytes % 1.4 %; Lymphocytes # 0.7 10*3/uL (1.4-4.0); Mean Corpuscular HGB Conc 31.3 GM/DL (32-36); Mean Corpuscular Volume 92.2 FL (87-102); Mean Platelet Volume 9.8 FL (9.6-12.0); Monocytes # 0.6 10*3/uL (0.11-0.8); Neutrophils % 92.5 % (38.7-73.9); Platelet Count 311 T/CUMM (130-400); Red Blood Count 3.95 MC/CUMM (3.8-5.5); Red Cell Distribution Width 18.7 % (9.3-17.3); White Blood Count 21.6 T/CUMM (4-12)
[2022-03-22 07:01] LABS: Calcium 8.5 MG/DL (8.5-10.1); Osmolality,Calculated 270.5 MOS/KG (273-304); Potassium 3.9 MMOL/L (3.5-5.1)
[2022-03-22 07:04] LABS: Lymphocytes 1 % (20-55); Platelet Estimate Adequate; Total Cells Counted 100
[2022-03-22 07:05] LABS: Hypochromia Slight; Microcytosis Slight
[2022-03-22] MEDS: FUROSEMIDE 40 MG/4 ML VIAL IV SCH ×2 (12:15→18:34)
[2022-03-22] MEDS: AMIODARONE 200 MG TABLET PO SCH ×2 (12:28→22:11)
[2022-03-22] MEDS: MENTHOL/ZINC OXIDE OINT 71 GM JAR TOP SCH ×2 (12:28→22:12)
[2022-03-22] MEDS: ASCORBIC ACID 500 MG TABLET PO SCH ×2 (12:28→22:11)
[2022-03-22] MEDS: MULTIVITAMIN (CENTRUM) TABLET PO SCH (12:28)
[2022-03-22] MEDS: PANTOPRAZOLE 40 MG TABLET PO SCH ×2 (12:29→22:12)
[2022-03-22] MEDS: APIXABAN 5 MG TABLET PO SCH ×2 (12:31→22:12)
[2022-03-23] MEDS: LEVALBUTEROL 1.25 MG/3 ML NEB RESP TX SCH ×4 (00:13→20:06)
[2022-03-23] MEDS: VANCOMYCIN INJ 1,250 MG in SODIUM CHLORIDE 0.9% 250 ML IV SCH ×2 (00:23→12:34)
[2022-03-23] MEDS: methylPREDNISolone SOD SUC 40 MG/1 ML VIAL IV SCH ×3 (00:23→17:02)
[2022-03-23] MEDS: MEROPENEM 500 MG in SODIUM CHLORIDE 0.9% 100 ML IV SCH ×3 (04:31→17:01)
[2022-03-23 06:00] LABS: Basophils % 0.1 % (0.0-0.8); Hematocrit 32.2 VOL% (42.0-52.0); Hemoglobin 10.3 GM/DL (14.0-18.0); Immature Granulocytes Absolute 0.15 #; Lymphocytes # 0.3 10*3/uL (1.4-4.0); Lymphocytes % 1.8 % (21.2-54.2); Mean Corpuscular Volume 92.8 FL (87-102); Mean Platelet Volume 10.9 FL (9.6-12.0); Monocytes # 0.5 10*3/uL (0.11-0.8); Monocytes % 3.6 % (1.7-12.7); Neutrophils % 93.5 % (38.7-73.9); Platelet Count 217 T/CUMM (130-400); Red Blood Count 3.47 MC/CUMM (3.8-5.5); Red Cell Distribution Width 18.5 % (9.3-17.3); White Blood Count 14.6 T/CUMM (4-12)
[2022-03-23 06:26] LABS: Hypochromia Slight; Lymphocytes 1 % (20-55); Microcytosis Slight; Platelet Estimate Adequate; Total Cells Counted 100
[2022-03-23 06:50] LABS: Calcium 8.4 MG/DL (8.5-10.1); Osmolality,Calculated 268.7 MOS/KG (273-304); Potassium 4.2 MMOL/L (3.5-5.1)
[2022-03-23] MEDS: MULTIVITAMIN (CENTRUM) TABLET PO SCH (09:52)
[2022-03-23] MEDS: APIXABAN 5 MG TABLET PO SCH ×2 (09:52→21:11)
[2022-03-23] MEDS: PANTOPRAZOLE 40 MG TABLET PO SCH ×2 (09:52→21:11)
[2022-03-23] MEDS: FUROSEMIDE 40 MG/4 ML VIAL IV SCH (09:52)
[2022-03-23] MEDS: METOPROLOL TARTRATE 25 MG TABLET PO SCH ×3 (09:53→21:20)
[2022-03-23] MEDS: AMIODARONE 200 MG TABLET PO SCH ×2 (09:53→21:11)
[2022-03-23] MEDS: ASCORBIC ACID 500 MG TABLET PO SCH ×2 (09:53→21:11)
[2022-03-23] MEDS: MENTHOL/ZINC OXIDE OINT 71 GM JAR TOP SCH ×2 (09:54→21:11)
[2022-03-24] MEDS: methylPREDNISolone SOD SUC 40 MG/1 ML VIAL IV SCH ×2 (01:08→08:37)
[2022-03-24] MEDS: VANCOMYCIN INJ 1,250 MG in SODIUM CHLORIDE 0.9% 250 ML IV SCH ×2 (01:09→11:33)
[2022-03-24] MEDS: LEVALBUTEROL 1.25 MG/3 ML NEB RESP TX SCH ×4 (01:19→19:45)
[2022-03-24 05:27] LABS: Basophils % 0.1 % (0.0-0.8); Hematocrit 28.1 VOL% (42.0-52.0); Hemoglobin 9.1 GM/DL (14.0-18.0); Immature Granulocytes Absolute 0.16 #; Lymphocytes # 0.3 10*3/uL (1.4-4.0); Lymphocytes % 1.8 % (21.2-54.2); Mean Corpuscular HGB Conc 32.4 GM/DL (32-36); Mean Corpuscular Volume 91.5 FL (87-102); Mean Platelet Volume 11.1 FL (9.6-12.0); Monocytes # 0.4 10*3/uL (0.11-0.8); Monocytes % 2.6 % (1.7-12.7); Neutrophils % 94.5 % (38.7-73.9); Platelet Count 170 T/CUMM (130-400); Red Blood Count 3.07 MC/CUMM (3.8-5.5); Red Cell Distribution Width 18.2 % (9.3-17.3)
[2022-03-24 05:39] LABS: Calcium 8.2 MG/DL (8.5-10.1); Osmolality,Calculated 268.7 MOS/KG (273-304); Potassium 3.2 MMOL/L (3.5-5.1)
[2022-03-24 06:02] LABS: Hypochromia 1+; Lymphocytes 1 % (20-55); Microcytosis 1+; Platelet Estimate Adequate; Target Cells Slight; Total Cells Counted 100
[2022-03-24] MEDS ORDERED: POTASSIUM CHLORIDE 20 MEQ TABLET PO ONE (08:18)
[2022-03-24] MEDS: ASCORBIC ACID 500 MG TABLET PO SCH ×2 (08:36→21:00)
[2022-03-24] MEDS: MULTIVITAMIN (CENTRUM) TABLET PO SCH (08:36)
[2022-03-24] MEDS: METOPROLOL TARTRATE 25 MG TABLET PO SCH ×2 (08:36→21:01)
[2022-03-24] MEDS: PANTOPRAZOLE 40 MG TABLET PO SCH ×2 (08:36→21:01)
[2022-03-24] MEDS: AMIODARONE 200 MG TABLET PO SCH ×2 (08:36→21:01)
[2022-03-24] MEDS: APIXABAN 5 MG TABLET PO SCH ×2 (08:36→21:01)
[2022-03-24] MEDS: MENTHOL/ZINC OXIDE OINT 71 GM JAR TOP SCH ×2 (08:38→21:15)
[2022-03-24] MEDS: IMMUNE GLOBULIN 10% 20 GM in PREMIX 1 EACH IV SCH (15:01)
[2022-03-24] MEDS: methylPREDNISolone SOD SUC 125 MG/2 ML VIAL IV SCH (16:54)
[2022-03-25] MEDS: LEVALBUTEROL 1.25 MG/3 ML NEB RESP TX SCH ×4 (00:07→19:40)
[2022-03-25] MEDS: VANCOMYCIN INJ 1,250 MG in SODIUM CHLORIDE 0.9% 250 ML IV SCH ×2 (00:44→11:25)
[2022-03-25] MEDS: methylPREDNISolone SOD SUC 125 MG/2 ML VIAL IV SCH ×3 (00:45→15:18)
[2022-03-25 04:52] LABS: Basophils % 0.2 % (0.0-0.8); Hematocrit 28.7 VOL% (42.0-52.0); Hemoglobin 9.2 GM/DL (14.0-18.0); Immature Granulocytes % 1.5 %; Immature Granulocytes Absolute 0.29 #; Lymphocytes # 0.3 10*3/uL (1.4-4.0); Lymphocytes % 1.7 % (21.2-54.2); Mean Corpuscular HGB Conc 32.1 GM/DL (32-36); Monocytes # 0.5 10*3/uL (0.11-0.8); Monocytes % 2.6 % (1.7-12.7); Platelet Count 149 T/CUMM (130-400); Red Blood Count 3.12 MC/CUMM (3.8-5.5); Red Cell Distribution Width 18.2 % (9.3-17.3); White Blood Count 19.3 T/CUMM (4-12)
[2022-03-25 05:16] LABS: Hypochromia Slight; Lymphocytes 2 % (20-55); Microcytosis Slight; Platelet Estimate Adequate; Total Cells Counted 100
[2022-03-25 05:24] LABS: Osmolality,Calculated 261.1 MOS/KG (273-304); Potassium 3.8 MMOL/L (3.5-5.1)
[2022-03-25] MEDS: AMIODARONE 200 MG TABLET PO SCH ×2 (08:29→21:42)
[2022-03-25] MEDS: METOPROLOL TARTRATE 25 MG TABLET PO SCH ×2 (08:29→21:42)
[2022-03-25] MEDS: ASCORBIC ACID 500 MG TABLET PO SCH ×2 (08:29→21:42)
[2022-03-25] MEDS: MULTIVITAMIN (CENTRUM) TABLET PO SCH (08:29)
[2022-03-25] MEDS: PANTOPRAZOLE 40 MG TABLET PO SCH ×2 (08:29→21:42)
[2022-03-25] MEDS: MENTHOL/ZINC OXIDE OINT 71 GM JAR TOP SCH ×2 (08:29→21:43)
[2022-03-25] MEDS: APIXABAN 5 MG TABLET PO SCH ×2 (08:29→21:42)
[2022-03-25] MEDS: IMMUNE GLOBULIN 10% 20 GM in PREMIX 1 EACH IV SCH (09:40)
[2022-03-25] MEDS: MORPHINE 2 MG/1 ML SYRINGE IV PRN ×2 (13:18→19:31)
[2022-03-25 22:59] LABS: Arterial Base Excess iSTAT 11 MMOL/L (-2.5-2.5); Arterial Bicarbonate iSTAT 37.8 MMOL/L (20-26); Arterial O2 Saturation iSTAT 86 % (95-100); Arterial PCO2 iSTAT 60 MM HG (35-48); Arterial PO2 iSTAT 53 MM HG (80-95); Arterial Total CO2 iSTAT 40 MMO/L (23-27); Arterial pH iSTAT 7.408 (7.35-7.45)
[2022-03-26] MEDS: VANCOMYCIN INJ 1,250 MG in SODIUM CHLORIDE 0.9% 250 ML IV SCH ×2 (00:52→15:53)
[2022-03-26] MEDS: methylPREDNISolone SOD SUC 125 MG/2 ML VIAL IV SCH ×3 (00:52→15:56)
[2022-03-26] MEDS ORDERED: FUROSEMIDE 40 MG/4 ML VIAL IV ONE (01:00)
[2022-03-26] MEDS ORDERED: LORazepam 2 MG/1 ML VIAL IV PRN (02:54)
[2022-03-26 06:50] LABS: Basophils % 0.1 % (0.0-0.8); Hematocrit 29.6 VOL% (42.0-52.0); Hemoglobin 9.6 GM/DL (14.0-18.0); Immature Granulocytes % 1.9 %; Immature Granulocytes Absolute 0.42 #; Lymphocytes # 0.4 10*3/uL (1.4-4.0); Lymphocytes % 1.6 % (21.2-54.2); Mean Corpuscular HGB Conc 32.4 GM/DL (32-36); Mean Corpuscular Volume 90.8 FL (87-102); Mean Platelet Volume 12.3 FL (9.6-12.0); Monocytes # 0.7 10*3/uL (0.11-0.8); Monocytes % 3.1 % (1.7-12.7); Neutrophils % 93.3 % (38.7-73.9); Platelet Count 123 T/CUMM (130-400); Red Blood Count 3.26 MC/CUMM (3.8-5.5); Red Cell Distribution Width 18.6 % (9.3-17.3); White Blood Count 22.6 T/CUMM (4-12)
[2022-03-26] MEDS: LEVALBUTEROL 1.25 MG/3 ML NEB RESP TX SCH ×2 (07:05→13:29)
[2022-03-26] MEDS: IPRATROPIUM 500 MCG/2.5 ML NEB RESP TX SCH ×2 (07:05→13:29)
[2022-03-26 07:08] LABS: Total Cells Counted 100
[2022-03-26 07:14] LABS: Calcium 7.9 MG/DL (8.5-10.1); Osmolality,Calculated 260.1 MOS/KG (273-304); Potassium 4.1 MMOL/L (3.5-5.1)
[2022-03-26 07:17] LABS: Albumin 1.7 G/DL (3.4-5.0); Bilirubin,Total 0.7 MG/DL (0.20-1.00); Calcium 8.1 MG/DL (8.5-10.1); Osmolality,Calculated 260.1 MOS/KG (273-304); Total Protein 6.1 G/DL (6.4-8.2)
[2022-03-26] MEDS: ASCORBIC ACID 500 MG TABLET PO SCH ×2 (08:49→22:12)
[2022-03-26] MEDS: MULTIVITAMIN (CENTRUM) TABLET PO SCH (08:49)
[2022-03-26] MEDS: METOPROLOL TARTRATE 25 MG TABLET PO SCH ×2 (08:50→22:12)
[2022-03-26] MEDS: PANTOPRAZOLE 40 MG TABLET PO SCH (08:50)
[2022-03-26] MEDS: APIXABAN 5 MG TABLET PO SCH (08:51)
[2022-03-26] MEDS: AMIODARONE 200 MG TABLET PO SCH ×2 (09:04→22:12)
[2022-03-26] MEDS: IMMUNE GLOBULIN 10% 20 GM in PREMIX 1 EACH IV SCH (09:05)
[2022-03-26] MEDS: MENTHOL/ZINC OXIDE OINT 71 GM JAR TOP SCH ×2 (09:05→22:12)
[2022-03-26] MEDS ORDERED: FAMOTIDINE 20 MG/2 ML VIAL IV SCH (11:00)
[2022-03-26 11:07] LABS: Arterial Base Excess iSTAT 14 MMOL/L (-2.5-2.5); Arterial O2 Saturation iSTAT 93 % (95-100); Arterial PCO2 iSTAT 55 MM HG (35-48); Arterial PO2 iSTAT 65 MM HG (80-95); Arterial Total CO2 iSTAT 42 MMO/L (23-27); Arterial pH iSTAT 7.473 (7.35-7.45)
[2022-03-26] MEDS: MEROPENEM 500 MG in SODIUM CHLORIDE 0.9% 100 ML IV SCH ×2 (11:40→17:05)
[2022-03-26] MEDS: FUROSEMIDE 40 MG/4 ML VIAL IV SCH ×2 (12:16→15:53)
[2022-03-26 12:30] LABS: Bacteria,Urine Occasional /HPF (Few); Bilirubin,Urine Negative (Negative); Blood, Urine Moderate mg/dL (Negative); Glucose,Urine (UA) Negative (Negative); Ketones,Urine Negative (Negative); Mucus,Urine Occasional /LPF (Occasional); Nitrite,Urine Negative (Negative); Protein,Urine 30 mg/dL (Negative); RBC,Urine 53 /HPF (0-4); Urine Appearance Slightly Hazy (Clear); Urine Color Yellow (Yellow); Urine Specific Gravity 1.016 (1.001-1.035); Urine Urobilinogen < 2.0 eU/dL (<2.0)
[2022-03-26] MEDS: ALBUTEROL/IPRATROPIUM 3 ML NEB RESP TX SCH ×2 (12:55→20:00)
[2022-03-26] MEDS: MORPHINE 2 MG/1 ML SYRINGE IV PRN (18:30)
[2022-03-27] MEDS: MEROPENEM 500 MG in SODIUM CHLORIDE 0.9% 100 ML IV SCH ×4 (00:31→17:14)
[2022-03-27] MEDS: methylPREDNISolone SOD SUC 125 MG/2 ML VIAL IV SCH ×3 (00:31→17:09)
[2022-03-27] MEDS: ALBUTEROL/IPRATROPIUM 3 ML NEB RESP TX SCH ×4 (01:41→20:11)
[2022-03-27 03:38] LABS: Arterial Base Excess iSTAT 18 MMOL/L (-2.5-2.5); Arterial Bicarbonate iSTAT 44.9 MMOL/L (20-26); Arterial O2 Saturation iSTAT 94 % (95-100); Arterial PCO2 iSTAT 63 MM HG (35-48); Arterial PO2 iSTAT 69 MM HG (80-95); Arterial Total CO2 iSTAT 47 MMO/L (23-27); Arterial pH iSTAT 7.461 (7.35-7.45)
[2022-03-27] MEDS: VANCOMYCIN INJ 1,250 MG in SODIUM CHLORIDE 0.9% 250 ML IV SCH (04:19)
[2022-03-27 06:10] LABS: Basophils % 0.1 % (0.0-0.8); Hematocrit 31.3 VOL% (42.0-52.0); Hemoglobin 10.2 GM/DL (14.0-18.0); Immature Granulocytes % 1.3 %; Immature Granulocytes Absolute 0.19 #; Lymphocytes # 0.4 10*3/uL (1.4-4.0); Lymphocytes % 2.8 % (21.2-54.2); Mean Corpuscular HGB Conc 32.6 GM/DL (32-36); Mean Corpuscular Volume 91.8 FL (87-102); Mean Platelet Volume 11.7 FL (9.6-12.0); Monocytes # 0.4 10*3/uL (0.11-0.8); Monocytes % 2.8 % (1.7-12.7); Platelet Count 106 T/CUMM (130-400); Red Blood Count 3.41 MC/CUMM (3.8-5.5); Red Cell Distribution Width 18.6 % (9.3-17.3); White Blood Count 15.1 T/CUMM (4-12)
[2022-03-27 06:30] LABS: Albumin 1.6 G/DL (3.4-5.0); Bilirubin,Total 0.7 MG/DL (0.20-1.00); Calcium 7.9 MG/DL (8.5-10.1); Lymphocytes 1 % (20-55); Osmolality,Calculated 263.9 MOS/KG (273-304); Platelet Estimate Decreased; Potassium 3.9 MMOL/L (3.5-5.1); Total Cells Counted 100; Total Protein 6.3 G/DL (6.4-8.2)
[2022-03-27 06:41] LABS: Phosphorous 3.1 MG/DL (2.5-4.9)
[2022-03-27] MEDS: METOPROLOL TARTRATE 25 MG TABLET PO SCH ×2 (08:51→20:39)
[2022-03-27] MEDS: ASCORBIC ACID 500 MG TABLET PO SCH ×2 (08:51→20:39)
[2022-03-27] MEDS: MULTIVITAMIN (CENTRUM) TABLET PO SCH (08:51)
[2022-03-27] MEDS: AMIODARONE 200 MG TABLET PO SCH ×2 (08:51→20:39)
[2022-03-27] MEDS: FUROSEMIDE 40 MG/4 ML VIAL IV SCH ×2 (09:01→17:06)
[2022-03-27] MEDS: MENTHOL/ZINC OXIDE OINT 71 GM JAR TOP SCH ×2 (09:08→23:25)
[2022-03-27 09:39] LABS: % Iron Saturation 30.9 % (18-50)
[2022-03-27 10:59] LABS: Folate > 24.00 NG/ML (5.38-24.0); Vitamin B12 1829 PG/ML (211-911)
[2022-03-27] MEDS: MYCOPHENOLATE MOFETIL 250 MG CAPSULE PO SCH ×2 (11:35→20:39)
[2022-03-27] MEDS: FAMOTIDINE 20 MG/2 ML VIAL IV SCH (11:36)
[2022-03-27] MEDS ORDERED: FERRIC GLUCONATE COMPLEX 125 MG in SODIUM CHLORIDE 0.9% 100 ML IV ONE (15:20)
[2022-03-27] MEDS: IMMUNE GLOBULIN 10% 20 GM in PREMIX 1 EACH IV SCH (15:23)
[2022-03-27] MEDS: MORPHINE 2 MG/1 ML SYRINGE IV PRN ×2 (17:11→21:19)
[2022-03-28] MEDS: methylPREDNISolone SOD SUC 125 MG/2 ML VIAL IV SCH ×4 (00:40→23:43)
[2022-03-28] MEDS: MEROPENEM 500 MG in SODIUM CHLORIDE 0.9% 100 ML IV SCH ×5 (00:40→23:42)
[2022-03-28] MEDS: ALBUTEROL/IPRATROPIUM 3 ML NEB RESP TX SCH ×4 (03:28→19:54)
[2022-03-28 07:36] LABS: Albumin 1.7 G/DL (3.4-5.0); Bilirubin,Total 0.5 MG/DL (0.20-1.00); Calcium 8.2 MG/DL (8.5-10.1); Osmolality,Calculated 271.7 MOS/KG (273-304); Potassium 3.5 MMOL/L (3.5-5.1); Total Protein 6.7 G/DL (6.4-8.2)
[2022-03-28] MEDS: MYCOPHENOLATE MOFETIL 250 MG CAPSULE PO SCH ×2 (08:27→21:40)
[2022-03-28] MEDS: AMIODARONE 200 MG TABLET PO SCH ×2 (08:27→21:40)
[2022-03-28] MEDS: METOPROLOL TARTRATE 25 MG TABLET PO SCH ×2 (08:27→21:40)
[2022-03-28] MEDS: ASCORBIC ACID 500 MG TABLET PO SCH ×2 (08:28→21:40)
[2022-03-28] MEDS: MULTIVITAMIN (CENTRUM) TABLET PO SCH (08:28)
[2022-03-28] MEDS: FUROSEMIDE 40 MG/4 ML VIAL IV SCH ×2 (09:00→16:41)
[2022-03-28] MEDS: MORPHINE 2 MG/1 ML SYRINGE IV PRN ×4 (09:05→22:28)
[2022-03-28] MEDS: MENTHOL/ZINC OXIDE OINT 71 GM JAR TOP SCH ×2 (09:13→22:26)
[2022-03-28] MEDS: FAMOTIDINE 20 MG/2 ML VIAL IV SCH (12:04)
[2022-03-29] MEDS: ALBUTEROL/IPRATROPIUM 3 ML NEB RESP TX SCH ×4 (01:17→19:46)
[2022-03-29] MEDS: MEROPENEM 500 MG in SODIUM CHLORIDE 0.9% 100 ML IV SCH ×4 (05:18→23:35)
[2022-03-29 05:55] LABS: Basophils % 0.1 % (0.0-0.8); Hemoglobin 10.7 GM/DL (14.0-18.0); Immature Granulocytes % 1.8 %; Immature Granulocytes Absolute 0.33 #; Lymphocytes # 0.3 10*3/uL (1.4-4.0); Lymphocytes % 1.8 % (21.2-54.2); Mean Corpuscular HGB Conc 31.5 GM/DL (32-36); Mean Corpuscular Volume 93.2 FL (87-102); Mean Platelet Volume 10.7 FL (9.6-12.0); Monocytes # 0.5 10*3/uL (0.11-0.8); Neutrophils % 93.3 % (38.7-73.9); Platelet Count 110 T/CUMM (130-400); Red Blood Count 3.65 MC/CUMM (3.8-5.5); Red Cell Distribution Width 18.1 % (9.3-17.3); White Blood Count 18.2 T/CUMM (4-12)
[2022-03-29 06:13] LABS: Total Cells Counted 100
[2022-03-29 06:24] LABS: Alanine Aminotransferase 28 U/L (16-61); Albumin 1.7 G/DL (3.4-5.0); Alkaline Phosphatase 241 U/L (45-117); Aspartate Amino Transferase 28 U/L (0-37); Blood Urea Nitrogen 32 MG/DL (7-18); Calcium 8.1 MG/DL (8.5-10.1); Carbon Dioxide 51 MMOL/L (21-32); Chloride 88 MMOL/L (98-107); Glucose 159 MG/DL (74-106); Osmolality,Calculated 279.1 MOS/KG (273-304); Potassium 3.2 MMOL/L (3.5-5.1); Sodium 135 MMOL/L (136-145); Total Protein 6.2 G/DL (6.4-8.2)
[2022-03-29] MEDS: MORPHINE 2 MG/1 ML SYRINGE IV PRN ×3 (07:36→23:37)
[2022-03-29] MEDS: AMIODARONE 200 MG TABLET PO SCH ×2 (09:04→21:24)
[2022-03-29] MEDS: MULTIVITAMIN (CENTRUM) TABLET PO SCH (09:04)
[2022-03-29] MEDS: ASCORBIC ACID 500 MG TABLET PO SCH ×2 (09:04→21:24)
[2022-03-29] MEDS: MENTHOL/ZINC OXIDE OINT 71 GM JAR TOP SCH (09:05)
[2022-03-29] MEDS: METOPROLOL TARTRATE 25 MG TABLET PO SCH ×2 (09:05→22:00)
[2022-03-29] MEDS: MYCOPHENOLATE MOFETIL 250 MG CAPSULE PO SCH ×2 (09:06→21:24)
[2022-03-29] MEDS: FUROSEMIDE 40 MG/4 ML VIAL IV SCH ×2 (09:34→16:40)
[2022-03-29] MEDS: methylPREDNISolone SOD SUC 125 MG/2 ML VIAL IV SCH ×3 (09:36→23:35)
[2022-03-29] MEDS ORDERED: POTASSIUM BICARB EFFERVESCENT 20 MEQ TAB.EFF PO ONE (12:00)
[2022-03-29] MEDS: FAMOTIDINE 20 MG/2 ML VIAL IV SCH (12:03)
[2022-03-29] MEDS ORDERED: HEPARIN 5,000 UNIT/1 ML VIAL SUBCUT SCH (15:00)
[2022-03-29] MEDS: ENOXAPARIN 40 MG/0.4 ML SYRINGE SUBCUT SCH (16:46)
[2022-03-30] MEDS: ALBUTEROL/IPRATROPIUM 3 ML NEB RESP TX SCH ×4 (01:27→19:15)
[2022-03-30] MEDS: MEROPENEM 500 MG in SODIUM CHLORIDE 0.9% 100 ML IV SCH ×4 (05:15→23:59)
[2022-03-30 06:54] LABS: Basophils % 0.1 % (0.0-0.8); Hematocrit 31.9 VOL% (42.0-52.0); Hemoglobin 9.9 GM/DL (14.0-18.0); Immature Granulocytes % 1.8 %; Lymphocytes # 0.2 10*3/uL (1.4-4.0); Lymphocytes % 1.4 % (21.2-54.2); Mean Corpuscular Volume 95.5 FL (87-102); Mean Platelet Volume 12.2 FL (9.6-12.0); Monocytes # 0.5 10*3/uL (0.11-0.8); Monocytes % 2.7 % (1.7-12.7); Platelet Count 104 T/CUMM (130-400); Red Blood Count 3.34 MC/CUMM (3.8-5.5); Red Cell Distribution Width 18.4 % (9.3-17.3); White Blood Count 16.8 T/CUMM (4-12)
[2022-03-30 07:15] LABS: Hypochromia Slight; Lymphocytes 1 % (20-55); Microcytosis Slight; Platelet Estimate Decreased; Total Cells Counted 100
[2022-03-30 07:49] LABS: Albumin 1.7 G/DL (3.4-5.0); Bilirubin,Total 0.5 MG/DL (0.20-1.00); Osmolality,Calculated 284.8 MOS/KG (273-304); Total Protein 5.8 G/DL (6.4-8.2)
[2022-03-30] MEDS: methylPREDNISolone SOD SUC 125 MG/2 ML VIAL IV SCH ×2 (08:19→15:44)
[2022-03-30] MEDS: FUROSEMIDE 40 MG/4 ML VIAL IV SCH ×2 (08:19→15:44)
[2022-03-30] MEDS: METOPROLOL TARTRATE 25 MG TABLET PO SCH ×2 (08:20→20:35)
[2022-03-30] MEDS: MULTIVITAMIN (CENTRUM) TABLET PO SCH (08:20)
[2022-03-30] MEDS: AMIODARONE 200 MG TABLET PO SCH ×2 (08:20→20:35)
[2022-03-30] MEDS: ASCORBIC ACID 500 MG TABLET PO SCH ×2 (08:20→20:35)
[2022-03-30] MEDS: MYCOPHENOLATE MOFETIL 250 MG CAPSULE PO SCH ×2 (08:20→20:42)
[2022-03-30] MEDS: FAMOTIDINE 20 MG/2 ML VIAL IV SCH (11:06)
[2022-03-30] MEDS: MENTHOL/ZINC OXIDE OINT 71 GM JAR TOP SCH ×2 (11:06→20:44)
[2022-03-30] MEDS ORDERED: POTASSIUM BICARB EFFERVESCENT 20 MEQ TAB.EFF PO ONE (15:16)
[2022-03-30] MEDS: ENOXAPARIN 40 MG/0.4 ML SYRINGE SUBCUT SCH (15:44)
[2022-03-30] MEDS: MORPHINE 2 MG/1 ML SYRINGE IV PRN (17:44)
[2022-03-30] MEDS ORDERED: POTASSIUM CHLORIDE 20 MEQ TABLET PO ONE (20:18)
[2022-03-30] MEDS ORDERED: DILTIAZEM 25 MG/5 ML VIAL IV ONE (20:23)
[2022-03-30 23:32] LABS: ABG Base Excess 21.6 MMOL/L (-2.5-2.5); ABG Oxygen Saturation 89.8 % (95-100); ABG PH 7.429 (7.35-7.45); ABG PO2 64.5 MM HG (80-95); ABG TCO2 45.7 MMOL/L (23-27)
[2022-03-30 23:35] LABS: ABG PCO2 75.9 MM HG (35-48)
[2022-03-31 00:08] LABS: Blood Urea Nitrogen 36 MG/DL (7-18); Carbon Dioxide 49 MMOL/L (21-32); Chloride 88 MMOL/L (98-107); Glucose 166 MG/DL (74-106); Osmolality,Calculated 284.8 MOS/KG (273-304); Potassium 3.5 MMOL/L (3.5-5.1); Sodium 137 MMOL/L (136-145)
[2022-03-31] MEDS: ALBUTEROL/IPRATROPIUM 3 ML NEB RESP TX SCH ×4 (00:14→19:15)
[2022-03-31] MEDS: MENTHOL/ZINC OXIDE OINT 71 GM JAR TOP SCH ×3 (00:33→23:10)
[2022-03-31] MEDS: VANCOMYCIN INJ 1,250 MG in SODIUM CHLORIDE 0.9% 250 ML IV SCH ×2 (01:11→13:06)
[2022-03-31] MEDS: methylPREDNISolone SOD SUC 125 MG/2 ML VIAL IV SCH ×2 (01:20→09:15)
[2022-03-31] MEDS: DILTIAZEM INJ 100 MG in SODIUM CHLORIDE 0.9% 100 ML IV SCH ×3 (02:18→23:05)
[2022-03-31 05:08] LABS: Basophils % 0.1 % (0.0-0.8); Hematocrit 31.3 VOL% (42.0-52.0); Hemoglobin 9.9 GM/DL (14.0-18.0); Immature Granulocytes % 1.7 %; Immature Granulocytes Absolute 0.36 #; Lymphocytes # 0.4 10*3/uL (1.4-4.0); Lymphocytes % 1.8 % (21.2-54.2); Mean Corpuscular HGB Conc 31.6 GM/DL (32-36); Mean Platelet Volume 12.4 FL (9.6-12.0); Monocytes # 0.7 10*3/uL (0.11-0.8); Monocytes % 3.3 % (1.7-12.7); NRBC # 0.02 10*3/uL; Neutrophils % 93.1 % (38.7-73.9); Platelet Count 106 T/CUMM (130-400); Red Blood Count 3.33 MC/CUMM (3.8-5.5); Red Cell Distribution Width 18.5 % (9.3-17.3); White Blood Count 21.7 T/CUMM (4-12)
[2022-03-31] MEDS: MEROPENEM 500 MG in SODIUM CHLORIDE 0.9% 100 ML IV SCH ×4 (05:22→22:38)
[2022-03-31 05:27] LABS: Albumin 1.8 G/DL (3.4-5.0); Bilirubin,Total 0.6 MG/DL (0.20-1.00); Calcium 8.1 MG/DL (8.5-10.1); Calcium 8.5 MG/DL (8.5-10.1); Osmolality,Calculated 282.8 MOS/KG (273-304); Osmolality,Calculated 283.7 MOS/KG (273-304); Potassium 3.4 MMOL/L (3.5-5.1); Potassium 3.5 MMOL/L (3.5-5.1); Total Protein 5.9 G/DL (6.4-8.2)
[2022-03-31 05:46] LABS: Lymphocytes 2 % (20-55); Platelet Estimate Decreased; Total Cells Counted 100
[2022-03-31 05:47] LABS: Hypochromia Slight
[2022-03-31 05:48] LABS: Microcytosis Slight
[2022-03-31] MEDS ORDERED: POTASSIUM BICARB EFFERVESCENT 20 MEQ TAB.EFF PO ONE (06:04)
[2022-03-31] MEDS: FUROSEMIDE 40 MG/4 ML VIAL IV SCH ×2 (09:14→16:12)
[2022-03-31] MEDS: FAMOTIDINE 20 MG/2 ML VIAL IV SCH (12:18)
[2022-03-31] MEDS: METOPROLOL TARTRATE 25 MG TABLET PO SCH (12:18)
[2022-03-31] MEDS: AMIODARONE 200 MG TABLET PO SCH ×2 (12:18→22:31)
[2022-03-31] MEDS: MYCOPHENOLATE MOFETIL 250 MG CAPSULE PO SCH ×2 (12:18→22:29)
[2022-03-31] MEDS: MULTIVITAMIN (CENTRUM) TABLET PO SCH (12:31)
[2022-03-31] MEDS: ASCORBIC ACID 500 MG TABLET PO SCH ×2 (12:31→22:30)
[2022-03-31] MEDS: ENOXAPARIN 40 MG/0.4 ML SYRINGE SUBCUT SCH (16:12)
[2022-03-31] MEDS: methylPREDNISolone SOD SUC 40 MG/1 ML VIAL IV SCH (16:13)
[2022-03-31] MEDS: METOPROLOL SUCCINATE XL 50 MG TABLET PO SCH (22:30)
[2022-04-01] MEDS: ALBUTEROL/IPRATROPIUM 3 ML NEB RESP TX SCH ×4 (00:05→20:28)
[2022-04-01] MEDS: METOPROLOL SUCCINATE XL 50 MG TABLET PO SCH ×3 (00:31→22:45)
[2022-04-01] MEDS: AMIODARONE 200 MG TABLET PO SCH ×3 (00:31→22:45)
[2022-04-01] MEDS: ASCORBIC ACID 500 MG TABLET PO SCH ×3 (00:31→22:45)
[2022-04-01] MEDS: methylPREDNISolone SOD SUC 40 MG/1 ML VIAL IV SCH ×4 (01:33→23:31)
[2022-04-01] MEDS: VANCOMYCIN INJ 1,250 MG in SODIUM CHLORIDE 0.9% 250 ML IV SCH ×2 (01:55→13:09)
[2022-04-01] MEDS: MEROPENEM 500 MG in SODIUM CHLORIDE 0.9% 100 ML IV SCH ×4 (05:17→22:48)
[2022-04-01 06:06] LABS: Basophils % 0.1 % (0.0-0.8); Hematocrit 30.8 VOL% (42.0-52.0); Hemoglobin 9.5 GM/DL (14.0-18.0); Immature Granulocytes % 1.2 %; Lymphocytes # 0.4 10*3/uL (1.4-4.0); Lymphocytes % 2.4 % (21.2-54.2); Mean Corpuscular HGB Conc 30.8 GM/DL (32-36); Mean Corpuscular Volume 96.3 FL (87-102); Mean Platelet Volume 12.5 FL (9.6-12.0); Monocytes # 0.5 10*3/uL (0.11-0.8); Monocytes % 2.8 % (1.7-12.7); Neutrophils % 93.5 % (38.7-73.9); Red Cell Distribution Width 18.6 % (9.3-17.3); White Blood Count 16.2 T/CUMM (4-12)
[2022-04-01 06:07] LABS: Platelet Count 94 T/CUMM (130-400)
[2022-04-01 06:52] LABS: Calcium 8.2 MG/DL (8.5-10.1); Osmolality,Calculated 282.8 MOS/KG (273-304); Potassium 2.9 MMOL/L (3.5-5.1)
[2022-04-01 07:28] LABS: Lymphocytes 2 % (20-55); Platelet Estimate Decreased; Total Cells Counted 100
[2022-04-01 07:29] LABS: Hypochromia Slight
[2022-04-01] MEDS: MYCOPHENOLATE MOFETIL 250 MG CAPSULE PO SCH ×2 (08:20→22:45)
[2022-04-01] MEDS: MULTIVITAMIN (CENTRUM) TABLET PO SCH (08:21)
[2022-04-01] MEDS: MENTHOL/ZINC OXIDE OINT 71 GM JAR TOP SCH ×2 (08:30→22:46)
[2022-04-01] MEDS: FUROSEMIDE 40 MG/4 ML VIAL IV SCH (08:51)
[2022-04-01] MEDS: FAMOTIDINE 20 MG/2 ML VIAL IV SCH (10:42)
[2022-04-01] MEDS ORDERED: POTASSIUM CHLORIDE 20 MEQ TABLET PO ONE (10:56)
[2022-04-01] MEDS: ENOXAPARIN 40 MG/0.4 ML SYRINGE SUBCUT SCH (14:51)
[2022-04-01] MEDS: DILTIAZEM INJ 100 MG in SODIUM CHLORIDE 0.9% 100 ML IV SCH (16:51)
[2022-04-02] MEDS: DILTIAZEM INJ 100 MG in SODIUM CHLORIDE 0.9% 100 ML IV SCH ×2 (00:14→10:37)
[2022-04-02] MEDS: ALBUTEROL/IPRATROPIUM 3 ML NEB RESP TX SCH ×4 (00:35→19:46)
[2022-04-02] MEDS: VANCOMYCIN INJ 1,250 MG in SODIUM CHLORIDE 0.9% 250 ML IV SCH ×2 (00:54→13:53)
[2022-04-02] MEDS: MEROPENEM 500 MG in SODIUM CHLORIDE 0.9% 100 ML IV SCH ×3 (04:38→16:42)
[2022-04-02 05:13] LABS: Basophils % 0.1 % (0.0-0.8); Hematocrit 29.5 VOL% (42.0-52.0); Hemoglobin 9.2 GM/DL (14.0-18.0); Immature Granulocytes % 1.2 %; Immature Granulocytes Absolute 0.22 #; Lymphocytes # 0.3 10*3/uL (1.4-4.0); Lymphocytes % 1.8 % (21.2-54.2); Mean Corpuscular HGB Conc 31.2 GM/DL (32-36); Mean Corpuscular Volume 95.5 FL (87-102); Monocytes # 0.4 10*3/uL (0.11-0.8); Monocytes % 2.3 % (1.7-12.7); Neutrophils % 94.6 % (38.7-73.9); Red Blood Count 3.09 MC/CUMM (3.8-5.5); Red Cell Distribution Width 18.6 % (9.3-17.3)
[2022-04-02 05:15] LABS: Platelet Count 97 T/CUMM (130-400)
[2022-04-02 05:39] LABS: Calcium 7.9 MG/DL (8.5-10.1); Osmolality,Calculated 283.7 MOS/KG (273-304)
[2022-04-02 06:32] LABS: Hypochromia Slight; Lymphocytes 2 % (20-55); Platelet Estimate Decreased; Total Cells Counted 100
[2022-04-02] MEDS: methylPREDNISolone SOD SUC 40 MG/1 ML VIAL IV SCH ×3 (08:08→23:06)
[2022-04-02] MEDS: MULTIVITAMIN (CENTRUM) TABLET PO SCH (08:59)
[2022-04-02] MEDS: MYCOPHENOLATE MOFETIL 250 MG CAPSULE PO SCH ×2 (08:59→20:20)
[2022-04-02] MEDS: AMIODARONE 200 MG TABLET PO SCH ×2 (09:00→20:20)
[2022-04-02] MEDS: METOPROLOL SUCCINATE XL 50 MG TABLET PO SCH ×2 (09:00→20:20)
[2022-04-02] MEDS: ASCORBIC ACID 500 MG TABLET PO SCH ×2 (09:00→20:20)
[2022-04-02] MEDS: MENTHOL/ZINC OXIDE OINT 71 GM JAR TOP SCH ×2 (09:00→20:21)
[2022-04-02] MEDS ORDERED: POTASSIUM CHLORIDE 20 MEQ TABLET PO ONE (10:33)
[2022-04-02] MEDS: FAMOTIDINE 20 MG/2 ML VIAL IV SCH (10:47)
[2022-04-03] MEDS: ALBUTEROL/IPRATROPIUM 3 ML NEB RESP TX SCH ×4 (00:46→19:25)
[2022-04-03] MEDS: VANCOMYCIN INJ 1,250 MG in SODIUM CHLORIDE 0.9% 250 ML IV SCH ×2 (01:11→12:10)
[2022-04-03 06:02] LABS: Basophils % 0.1 % (0.0-0.8); Hematocrit 34.5 VOL% (42.0-52.0); Hemoglobin 10.8 GM/DL (14.0-18.0); Immature Granulocytes % 1.3 %; Immature Granulocytes Absolute 0.28 #; Lymphocytes # 0.4 10*3/uL (1.4-4.0); Lymphocytes % 1.9 % (21.2-54.2); Mean Corpuscular HGB Conc 31.3 GM/DL (32-36); Mean Corpuscular Volume 96.9 FL (87-102); Mean Platelet Volume 11.4 FL (9.6-12.0); Monocytes # 0.4 10*3/uL (0.11-0.8); Monocytes % 1.9 % (1.7-12.7); Neutrophils % 94.8 % (38.7-73.9); Platelet Count 95 T/CUMM (130-400); Red Blood Count 3.56 MC/CUMM (3.8-5.5); Red Cell Distribution Width 18.6 % (9.3-17.3); White Blood Count 20.9 T/CUMM (4-12)
[2022-04-03 06:15] LABS: Calcium 8.3 MG/DL (8.5-10.1); Osmolality,Calculated 285.5 MOS/KG (273-304); Potassium 3.3 MMOL/L (3.5-5.1)
[2022-04-03 06:29] LABS: Hypochromia Slight; Platelet Estimate Decreased; Total Cells Counted 100
[2022-04-03] MEDS ORDERED: POTASSIUM CHLORIDE 20 MEQ TABLET PO ONE (09:58)
[2022-04-03] MEDS: methylPREDNISolone SOD SUC 40 MG/1 ML VIAL IV SCH ×3 (10:20→23:21)
[2022-04-03] MEDS: MULTIVITAMIN (CENTRUM) TABLET PO SCH (10:21)
[2022-04-03] MEDS: MENTHOL/ZINC OXIDE OINT 71 GM JAR TOP SCH ×2 (10:21→21:42)
[2022-04-03] MEDS: AMIODARONE 200 MG TABLET PO SCH ×2 (10:21→21:43)
[2022-04-03] MEDS: MYCOPHENOLATE MOFETIL 250 MG CAPSULE PO SCH ×2 (10:21→21:42)
[2022-04-03] MEDS: METOPROLOL SUCCINATE XL 50 MG TABLET PO SCH ×2 (10:22→21:42)
[2022-04-03] MEDS: FERROUS SULFATE 300 MG/5 ML UDCUP PO SCH (10:22)
[2022-04-03] MEDS: POTASSIUM CHLORIDE 20 MEQ TABLET PO SCH (10:22)
[2022-04-03] MEDS: ASCORBIC ACID 500 MG TABLET PO SCH ×2 (10:22→21:42)
[2022-04-03] MEDS: FAMOTIDINE 20 MG/2 ML VIAL IV SCH (12:12)
[2022-04-04] MEDS: ALBUTEROL/IPRATROPIUM 3 ML NEB RESP TX SCH ×2 (00:28→07:20)
[2022-04-04 06:10] LABS: Basophils % 0.1 % (0.0-0.8); Hematocrit 39.6 VOL% (42.0-52.0); Hemoglobin 12.4 GM/DL (14.0-18.0); Immature Granulocytes % 1.2 %; Immature Granulocytes Absolute 0.29 #; Lymphocytes # 0.5 10*3/uL (1.4-4.0); Lymphocytes % 1.9 % (21.2-54.2); Mean Corpuscular HGB Conc 31.3 GM/DL (32-36); Mean Corpuscular Volume 95.7 FL (87-102); Mean Platelet Volume 11.3 FL (9.6-12.0); Monocytes # 0.6 10*3/uL (0.11-0.8); Monocytes % 2.5 % (1.7-12.7); Neutrophils % 94.3 % (38.7-73.9); Platelet Count 85 T/CUMM (130-400); Red Blood Count 4.14 MC/CUMM (3.8-5.5); Red Cell Distribution Width 18.6 % (9.3-17.3); White Blood Count 24.6 T/CUMM (4-12)
[2022-04-04 06:25] LABS: Blood Urea Nitrogen 39 MG/DL (7-18); Calcium 8.4 MG/DL (8.5-10.1); Carbon Dioxide 42 MMOL/L (21-32); Chloride 94 MMOL/L (98-107); Glucose 115 MG/DL (74-106); Potassium 3.7 MMOL/L (3.5-5.1)
[2022-04-04 06:31] LABS: Hypochromia Slight; Lymphocytes 1 % (20-55); Microcytosis Slight; Platelet Estimate Decreased; Total Cells Counted 100
[2022-04-04 06:36] LABS: Sodium 136 MMOL/L (136-145)
[2022-04-04] MEDS: MYCOPHENOLATE MOFETIL 250 MG CAPSULE PO SCH ×2 (08:45→21:50)
[2022-04-04] MEDS: AMIODARONE 200 MG TABLET PO SCH ×2 (08:46→21:50)
[2022-04-04] MEDS: MULTIVITAMIN (CENTRUM) TABLET PO SCH (08:46)
[2022-04-04] MEDS: METOPROLOL SUCCINATE XL 50 MG TABLET PO SCH ×2 (08:46→21:50)
[2022-04-04] MEDS: FERROUS SULFATE 300 MG/5 ML UDCUP PO SCH (08:46)
[2022-04-04] MEDS: ASCORBIC ACID 500 MG TABLET PO SCH ×2 (08:46→21:50)
[2022-04-04] MEDS: POTASSIUM CHLORIDE 20 MEQ TABLET PO SCH (08:46)
[2022-04-04] MEDS: methylPREDNISolone SOD SUC 40 MG/1 ML VIAL IV SCH ×2 (08:52→15:45)
[2022-04-04] MEDS: MENTHOL/ZINC OXIDE OINT 71 GM JAR TOP SCH ×2 (08:53→21:50)
[2022-04-04] MEDS: FAMOTIDINE 20 MG/2 ML VIAL IV SCH (10:28)
[2022-04-04] MEDS ORDERED: SODIUM CHLORIDE 0.9% IV ONE (11:00)
[2022-04-04] MEDS ORDERED: INFLIXIMAB ABDA IV ONE (11:00)
[2022-04-05] MEDS: methylPREDNISolone SOD SUC 40 MG/1 ML VIAL IV SCH ×3 (00:15→16:32)
[2022-04-05 06:00] LABS: Basophils % 0.1 % (0.0-0.8); Hematocrit 35.6 VOL% (42.0-52.0); Immature Granulocytes % 1.1 %; Immature Granulocytes Absolute 0.22 #; Lymphocytes # 0.6 10*3/uL (1.4-4.0); Lymphocytes % 2.7 % (21.2-54.2); Mean Corpuscular HGB Conc 30.9 GM/DL (32-36); Mean Corpuscular Volume 98.6 FL (87-102); Mean Platelet Volume 11.9 FL (9.6-12.0); Monocytes # 0.3 10*3/uL (0.11-0.8); Monocytes % 1.6 % (1.7-12.7); Neutrophils % 94.5 % (38.7-73.9); Platelet Count 94 T/CUMM (130-400); Red Blood Count 3.61 MC/CUMM (3.8-5.5); Red Cell Distribution Width 18.9 % (9.3-17.3); White Blood Count 20.7 T/CUMM (4-12)
[2022-04-05 06:08] LABS: Calcium 8.3 MG/DL (8.5-10.1); Osmolality,Calculated 289.5 MOS/KG (273-304); Potassium 3.6 MMOL/L (3.5-5.1)
[2022-04-05 06:25] LABS: Hypochromia Slight; Lymphocytes 3 % (20-55); Microcytosis Slight; Platelet Estimate Decreased; Total Cells Counted 100
[2022-04-05] MEDS: FAMOTIDINE 20 MG/2 ML VIAL IV SCH (10:02)
[2022-04-05] MEDS: MULTIVITAMIN (CENTRUM) TABLET PO SCH (10:02)
[2022-04-05] MEDS: FERROUS SULFATE 300 MG/5 ML UDCUP PO SCH (10:02)
[2022-04-05] MEDS: METOPROLOL SUCCINATE XL 50 MG TABLET PO SCH ×2 (10:03→22:17)
[2022-04-05] MEDS: POTASSIUM CHLORIDE 20 MEQ TABLET PO SCH (10:03)
[2022-04-05] MEDS: ASCORBIC ACID 500 MG TABLET PO SCH ×2 (10:03→22:17)
[2022-04-05] MEDS: MENTHOL/ZINC OXIDE OINT 71 GM JAR TOP SCH ×2 (10:03→22:19)
[2022-04-05] MEDS: AMIODARONE 200 MG TABLET PO SCH ×2 (10:03→22:17)
[2022-04-05] MEDS: MYCOPHENOLATE MOFETIL 250 MG CAPSULE PO SCH ×2 (10:03→22:17)
[2022-04-06] MEDS: methylPREDNISolone SOD SUC 40 MG/1 ML VIAL IV SCH ×4 (00:12→23:20)
[2022-04-06 05:11] LABS: Basophils % 0.1 % (0.0-0.8); Hematocrit 35.7 VOL% (42.0-52.0); Hemoglobin 10.8 GM/DL (14.0-18.0); Immature Granulocytes % 1.5 %; Lymphocytes # 0.7 10*3/uL (1.4-4.0); Lymphocytes % 3.1 % (21.2-54.2); Mean Corpuscular HGB Conc 30.3 GM/DL (32-36); Mean Corpuscular Volume 99.2 FL (87-102); Mean Platelet Volume 12.2 FL (9.6-12.0); Monocytes # 0.3 10*3/uL (0.11-0.8); Monocytes % 1.5 % (1.7-12.7); Neutrophils % 93.8 % (38.7-73.9); Platelet Count 93 T/CUMM (130-400); Red Cell Distribution Width 18.9 % (9.3-17.3); White Blood Count 20.7 T/CUMM (4-12)
[2022-04-06 05:25] LABS: Calcium 8.2 MG/DL (8.5-10.1); Osmolality,Calculated 293.3 MOS/KG (273-304); Potassium 3.5 MMOL/L (3.5-5.1)
[2022-04-06 05:33] LABS: Lymphocytes 1 % (20-55); Total Cells Counted 100
[2022-04-06 05:34] LABS: Hypochromia Slight; Microcytosis Slight; Ovalocytes Slight; Platelet Estimate Decreased; Target Cells Slight
[2022-04-06] MEDS: FERROUS SULFATE 300 MG/5 ML UDCUP PO SCH (09:23)
[2022-04-06] MEDS: MULTIVITAMIN (CENTRUM) TABLET PO SCH (09:23)
[2022-04-06] MEDS: AMIODARONE 200 MG TABLET PO SCH ×2 (09:24→20:26)
[2022-04-06] MEDS: MYCOPHENOLATE MOFETIL 250 MG CAPSULE PO SCH ×2 (09:24→20:26)
[2022-04-06] MEDS: METOPROLOL SUCCINATE XL 50 MG TABLET PO SCH ×2 (09:24→20:26)
[2022-04-06] MEDS: MENTHOL/ZINC OXIDE OINT 71 GM JAR TOP SCH ×2 (09:25→20:26)
[2022-04-06] MEDS: POTASSIUM CHLORIDE 20 MEQ TABLET PO SCH (09:25)
[2022-04-06] MEDS: ASCORBIC ACID 500 MG TABLET PO SCH ×2 (09:25→20:26)
[2022-04-06] MEDS: FAMOTIDINE 20 MG/2 ML VIAL IV SCH (12:16)
[2022-04-07 07:14] VITALS: BP 43/22
[2022-04-07] MEDS: MENTHOL/ZINC OXIDE OINT 71 GM JAR TOP SCH (08:38)
[2022-04-07] MEDS: MYCOPHENOLATE MOFETIL 250 MG CAPSULE PO SCH (08:38)
[2022-04-07] MEDS: AMIODARONE 200 MG TABLET PO SCH (08:38)
[2022-04-07] MEDS: MULTIVITAMIN (CENTRUM) TABLET PO SCH (08:38)
[2022-04-07] MEDS: methylPREDNISolone SOD SUC 40 MG/1 ML VIAL IV SCH (08:38)
[2022-04-07] MEDS: ASCORBIC ACID 500 MG TABLET PO SCH (08:39)
[2022-04-07] MEDS: FERROUS SULFATE 300 MG/5 ML UDCUP PO SCH (08:39)
[2022-04-07] MEDS: METOPROLOL SUCCINATE XL 50 MG TABLET PO SCH (08:39)
[2022-04-07] MEDS: POTASSIUM CHLORIDE 20 MEQ TABLET PO SCH (08:39)
[2022-04-07] MEDS: FAMOTIDINE 20 MG/2 ML VIAL IV SCH (11:51)
== END 2022-04-07 08:45 | disposition expired | DRG 871 ==
LOC: N.ED 09:33 → SUATTDRO 11:38 → N.EDINP 11:38 → N.TELES 13:13 → N.CC 03-09 08:22 → N.TELES 03-14 15:12 → N.CC 03-26 04:07 → N.3E 03-26 13:30 → N.TELES 03-30 22:18
PROVIDERS: ADMIT Internal Medicine; ATTEND Internal Medicine